=== PATIENT | male | born 1985 | race Caucasian/White ===

== ENCOUNTER 2018-06-08 22:07 | Emergency (ER) | payer SELFPAY ==
[2018-06-08 22:12] VITALS: BP 161/90; PULSE 93; RESP 18; O2SAT 99; BMI 31.1
--- NOTE | 2018-06-08 22:19 | ED.DENTAL ---
HPI - Dental/Oral General Chief complaint: Dental/Oral Stated complaint: ABCESS TOOTH Time Seen by Provider: 06/08/18 22:19 Source: patient Mode of arrival: ambulatory Limitations: no limitations History of Present Illness HPI Narrative: 32-year-old male with extensive history of dental pain presents with worsening pain on his left lower molars in the absence of facial swelling, fever or obvious drainage. He denies any fever chills but just admits to increasing pain. He has seen dentists for this in the past and there was some discussion of dental extraction but he lost his insurance MD Complaint: tooth pain 1. Onset (ago): week(s) Duration: constant Severity: mild Severity scale (1-10): 5 Relieving factors: nothing Exacerbating factors: chewing, cold, heat and drinking fluids Context: history of dental caries Related Data Home Medications Medication Instructions Recorded Confirmed hydrocodone-acetaminophen [[place]] 1 tab PO PRN #0 05/17/17 ibuprofen Unknown #0 05/17/17 bupropion HCl [Wellbutrin SR] #0 12/30/17 Previous Rx's Medication Instructions Recorded prednisone 20 mg PO Q DAY #10 tab 12/30/17 prednisone 40 mg PO Q DAY #7 tab 12/30/17 Allergies Allergy/AdvReac Type Severity Reaction Status Date / Time No Known Drug Allergies Allergy Verified 06/08/18 22:15 Review of Systems Review of Systems All systems reviewed & are unremarkable except as noted in HPI and below Constitutional Denies chills, Denies fever(s), Denies lethargy and Denies weakness Eyes Denies change in vision, Denies eye discharge, Denies irritation and Denies loss of vision ENT Ears, Nose, Mouth, and Throat: Denies change in voice, Reports dental pain, Denies neck pain and Denies sore throat Cardiovascular Denies chest pain, Denies irregular heart rhythm, Denies lightheadedness, Denies palpitations, Denies dyspnea, Denies dyspnea on exertion and Denies orthopnea Respiratory Denies cough, Denies dyspnea, Denies dyspnea on exertion and Denies wheezing Gastrointestinal Gastrointestinal: Denies abdominal pain, Denies change in bowel habits, Denies diarrhea, Denies nausea and Denies vomiting Genitourinary Denies hematuria, Denies flank pain, Denies urinary incontinence and Denies urinary urgency Musculoskeletal Denies neck pain Integumentary/Breasts Denies pruritus, Denies erythema, Denies rash and Denies wounds Neurologic Denies confusion, Denies loss of vision and Denies weakness Psychiatric Denies anxiety, Denies confusion, Denies depression, Denies homicidal ideation and Denies suicidal ideation Endocrine Denies palpitations Hematologic/Lymphatic Denies easy bruising Allergic/Immunologic Denies wheezing [facility], [facility] Social History Smoking Status: Current every day smoker Exam Narrative Exam Narrative: GEN: AOx3 and in mild distress EYES: Pupils are equal, round, and reactive to light and accommodation. Extraoccular muscles are intact bilaterally. There is no subconjunctival hemorrhage or exudate. FACE: no swelling ORAL: widespread poor dentition with multiple caries, but no obvious abscess or swelling CHEST: Lungs are clear to auscultation bilaterally and free of wheezes, rales, or rhonchi. Heart rate is regular rhythm, there are no murmurs, clicks, rubs, or gallops. There is no chest wall tenderness. ABD: Abdomen is soft and nontender. There is no guarding or rebound. Bowel sounds are normal in all 4 quadrants. There is no mass or organomegaly. EXT: Full painless ROM of all extremities with no loss of sensation or strength. SKIN: Warm, pink, and dry. No erythema or rash Initial Vital Signs Initial Vital Signs: Vital Signs Pulse Rate 93 H 06/08/18 22:12 Respiratory Rate 18 06/08/18 22:12 Blood Pressure 161/90 H 06/08/18 22:12 Pulse Oximetry 99 06/08/18 22:12 Course Reevaluation(s) Reevaluation #1: Offered dental block but patient refused electing instead to take Tylenol and Motrin at home Vital Signs - 8 hr 06/08/18 22:12 06/08/18 22:40 Temperature 98.7 F Pulse Rate 93 H Respiratory Rate 18 Blood Pressure 161/90 H Pulse Oximetry 99 Discharge Plan Departure Patient Disposition: Home Clinical Impression: Pain, dental Discharge Date/Time: 06/08/18 23:29 Interventions: ED Discharge Assessment Last Done: 06/08/18 23:28 Instructions: DI for Dental Pain Activity Restrictions/Additional Instructions: *You have been diagnosed with [ dental pain due to caries ] *What to do: *Take medications as directed: over the counter motrin/tylenol *Follow up with your dentist as soon as possible, call for an appointment. Let them know you were seen in the Emergency Department and that we ask that you be seen in follow up *Return to ER if you should have any new, worsening or concerning symptoms, such as [ fever or facial swelling] Prescriptions: No Action hydrocodone-acetaminophen [[place]] 5 MG/325 MG tablet 1 tab PO PRNQty: 0 RF: 0 ibuprofen 200 MG tablet Unknown Qty: 0 RF: 0 bupropion HCl [Wellbutrin SR] 100 mg Tablet Extended Release 12 Hr Qty: 0 RF: 0 prednisone 20 MG tablet 20 mg PO Q DAY Qty: 10 RF: 0 prednisone 20 MG tablet 40 mg PO Q DAY Qty: 7 RF: 0
[2018-06-08 22:40] VITALS: TEMP 37.1
--- NOTE | 2018-06-09 02:47 | ED_ITS ---
HPI - Dental/Oral General Chief complaint: Dental/Oral Stated complaint: ABCESS TOOTH Time Seen by Provider: 06/08/18 22:19 Source: patient Mode of arrival: ambulatory Limitations: no limitations History of Present Illness HPI Narrative: 32-year-old male with extensive history of dental pain presents with worsening pain on his left lower molars in the absence of facial swelling, fever or obvious drainage. He denies any fever chills but just admits to increasing pain. He has seen dentists for this in the past and there was some discussion of dental extraction but he lost his insurance MD Complaint: tooth pain 2 1. Onset (ago): week(s) Duration: constant Severity: mild Severity scale (1-10): 5 Relieving factors: nothing Exacerbating factors: chewing, cold, heat and drinking fluids Context: history of dental caries Related Data Home Medications Medication Instructions Recorded Confirmed hydrocodone-acetaminophen [[place]] 1 tab PO PRN #0 05/17/17 ibuprofen Unknown #0 05/17/17 bupropion HCl [Wellbutrin SR] #0 12/30/17 Previous Rx's Medication Instructions Recorded prednisone 20 mg PO Q DAY #10 tab 12/30/17 prednisone 40 mg PO Q DAY #7 tab 12/30/17 Allergies Allergy/AdvReac Type Severity Reaction Status Date / Time No Known Drug Allergies Allergy Verified 06/08/18 22:15 Review of Systems Review of Systems All systems reviewed & are unremarkable except as noted in HPI and below Constitutional Denies chills, Denies fever(s), Denies lethargy and Denies weakness Eyes Denies change in vision, Denies eye discharge, Denies irritation and Denies loss of vision ENT Ears, Nose, Mouth, and Throat: Denies change in voice, Reports dental pain, Denies neck pain and Denies sore throat Cardiovascular Denies chest pain, Denies irregular heart rhythm, Denies lightheadedness, Denies palpitations, Denies dyspnea, Denies dyspnea on exertion and Denies orthopnea Respiratory Denies cough, Denies dyspnea, Denies dyspnea on exertion and Denies wheezing Gastrointestinal Gastrointestinal: Denies abdominal pain, Denies change in bowel habits, Denies diarrhea, Denies nausea and Denies vomiting Genitourinary Denies hematuria, Denies flank pain, Denies urinary incontinence and Denies urinary urgency Musculoskeletal Denies neck pain Integumentary/Breasts Denies pruritus, Denies erythema, Denies rash and Denies wounds Neurologic Denies confusion, Denies loss of vision and Denies weakness Psychiatric Denies anxiety, Denies confusion, Denies depression, Denies homicidal ideation and Denies suicidal ideation Endocrine Denies palpitations Hematologic/Lymphatic Denies easy bruising Allergic/Immunologic Denies wheezing [facility] Social History Smoking Status: Current every day smoker Exam Narrative Exam Narrative: GEN: AOx3 and in mild distress EYES: Pupils are equal, round, and reactive to light and accommodation. Extraoccular muscles are intact bilaterally. There is no subconjunctival hemorrhage or exudate. FACE: no swelling ORAL: widespread poor dentition with multiple caries, but no obvious abscess or swelling CHEST: Lungs are clear to auscultation bilaterally and free of wheezes, rales, or rhonchi. Heart rate is regular rhythm, there are no murmurs, clicks, rubs, or gallops. There is no chest wall tenderness. ABD: Abdomen is soft and nontender. There is no guarding or rebound. Bowel sounds are normal in all 4 quadrants. There is no mass or organomegaly. EXT: Full painless ROM of all extremities with no loss of sensation or strength. SKIN: Warm, pink, and dry. No erythema or rash Initial Vital Signs Initial Vital Signs: Vital Signs Pulse Rate 93 H 06/08/18 22:12 Respiratory Rate 18 06/08/18 22:12 Blood Pressure 161/90 H 06/08/18 22:12 Pulse Oximetry 99 06/08/18 22:12 Course Reevaluation(s) Reevaluation #1: Offered dental block but patient refused electing instead to take Tylenol and Motrin at home Vital Signs - 8 hr 06/08/18 22:12 06/08/18 22:40 Temperature 98.7 F Pulse Rate 93 H Respiratory Rate 18 Blood Pressure 161/90 H Pulse Oximetry 99 Discharge Plan Departure Patient Disposition: Home Clinical Impression: Pain, dental Discharge Date/Time: 06/08/18 23:29 Interventions: ED Discharge Assessment Last Done: 06/08/18 23:28 Instructions: DI for Dental Pain Activity Restrictions/Additional Instructions: *You have been diagnosed with [ dental pain due to caries ] *What to do: *Take medications as directed: over the counter motrin/tylenol *Follow up with your dentist as soon as possible, call for an appointment. Let them know you were seen in the Emergency Department and that we ask that you be seen in follow up *Return to ER if you should have any new, worsening or concerning symptoms , such as [ fever or facial swelling] Prescriptions: No Action hydrocodone-acetaminophen [[place]] 5 MG/325 MG tablet 1 tab PO PRNQty: 0 RF: 0 ibuprofen 200 MG tablet Unknown Qty: 0 RF: 0 bupropion HCl [Wellbutrin SR] 100 mg Tablet Extended Release 12 Hr Qty: 0 RF: 0 prednisone 20 MG tablet 20 mg PO Q DAY Qty: 10 RF: 0 prednisone 20 MG tablet 40 mg PO Q DAY Qty: 7 RF: 0
== END 2018-06-08 23:29 | disposition home or self-care (01) ==
PROVIDERS: Emergency Provider Emergency Medicine; Family Provider Family Medicine; PCP Family Medicine
DX: K08.89 Other specified disorders of teeth and supporting structures (principal)
CPT/HCPCS: 99282

== ENCOUNTER 2018-08-24 11:23 | Emergency (ER) | payer OTHER, SELFPAY ==
[2018-08-24 11:29] VITALS: BP 136/76; PULSE 75; RESP 19; TEMP 36.9; O2SAT 100; BMI 31.8
--- NOTE | 2018-08-24 11:37 | ED.BACK ---
HPI - Back Pain/Injury General Chief Complaint: Back Pain/Injury Stated Complaint: lower back pain Time Seen by Provider: 08/24/18 11:33 Source: patient and family Mode of arrival: ambulatory Limitations: no limitations History of Present Illness HPI Narrative: 32-year-old nonsmoking male presents with his in the chief complaint of right lumbar pain with radiation down his right leg for the past 2 days. He was lifting a heavy object when he felt the pain suddenly occur. He does have a history of low back pain but never like this. He denies any direct trauma. He has had no fever, chills or midline pain. He denies any dysuria, frequency or urgency. He denies any trouble with the control of his bowel or bladder. He denies any weakness of his lower extremities. MD Complaint: back pain Onset (ago): day(s) Duration: constant Similar Symptoms Previously: No Location: lumbar spine and right lower back Severity: severe Quality: burning and sharp Radiation: right leg Relieving factors: immobilization Exacerbating factors: walking Context: while lifting and turning/twisting Associated symptoms: difficulty walking Related Data Home Medications Medication Instructions Recorded Confirmed bupropion HCl [Wellbutrin SR] #0 12/30/17 Previous Rx's Medication Instructions Recorded ketorolac 10 mg PO Q6H PRN #14 tab 08/24/18 prednisone See Label Instructions .ROUTE 08/24/18 .COMPLEX #30 tab Allergies Allergy/AdvReac Type Severity Reaction Status Date / Time No Known Drug Allergies Allergy Verified 08/24/18 11:36 Review of Systems Review of Systems All systems reviewed & are unremarkable except as noted in HPI and below Constitutional Denies chills, Denies fever(s), Denies lethargy and Denies weakness Eyes Denies change in vision, Denies eye discharge, Denies irritation and Denies loss of vision ENT Ears, Nose, Mouth, and Throat: Denies change in voice, Denies neck pain and Denies sore throat Cardiovascular Denies chest pain, Denies irregular heart rhythm, Denies lightheadedness, Denies palpitations, Denies dyspnea, Denies dyspnea on exertion and Denies orthopnea Respiratory Denies cough, Denies dyspnea, Denies dyspnea on exertion and Denies wheezing Gastrointestinal Gastrointestinal: Denies abdominal pain, Denies change in bowel habits, Denies diarrhea, Denies nausea and Denies vomiting Genitourinary Denies hematuria, Denies flank pain, Denies urinary incontinence and Denies urinary urgency Musculoskeletal Reports abnormal gait, Reports back pain and Denies neck pain Integumentary/Breasts Denies pruritus, Denies erythema, Denies rash and Denies wounds Neurologic Reports abnormal gait, Denies confusion, Denies loss of vision and Denies weakness Psychiatric Denies anxiety, Denies confusion, Denies depression, Denies homicidal ideation and Denies suicidal ideation Endocrine Denies palpitations Hematologic/Lymphatic Denies easy bruising Allergic/Immunologic Denies wheezing [facility] Social History Smoking Status: Current every day smoker Exam Narrative Exam Narrative: GEN: AOx3 and in mild distress EYES: Pupils are equal, round, and reactive to light and accommodation. Extraoccular muscles are intact bilaterally. There is no subconjunctival hemorrhage or exudate. CHEST: Lungs are clear to auscultation bilaterally and free of wheezes, rales, or rhonchi. Heart rate is regular rhythm, there are no murmurs, clicks, rubs, or gallops. There is no chest wall tenderness. ABD: Abdomen is soft and nontender. There is no guarding or rebound. Bowel sounds are normal in all 4 quadrants. There is no mass or organomegaly. EXT: Full painless ROM of all extremities with no loss of sensation or strength. SKIN: Warm, pink, and dry. No erythema or rash BACK: long winder tender but free of any obvious external abnormalities. Patient exam notes decreased range of motion and muscle spasm, but no CVA tenderness, or vertebral point tenderness. There are no symptoms of cauda equina such as saddle anesthesia, and decreased reflexes, decreased sensation or strength. Initial Vital Signs Initial Vital Signs: Vital Signs Temperature 98.4 F 08/24/18 11:29 Pulse Rate 75 08/24/18 11:29 Respiratory Rate 19 08/24/18 11:29 Blood Pressure 136/76 08/24/18 11:29 Pulse Oximetry 100 08/24/18 11:29 Course Orders Ordered: Discontinued Medications Ketorolac Tromethamine (Toradol) 60 mg IM NOW ONE Stop: 08/24/18 11:45 Last Admin: 08/24/18 11:50 Dose: 60 mg Prednisone (Deltasone) 40 mg PO NOW ONE Stop: 08/24/18 11:45 Last Admin: 08/24/18 11:50 Dose: 40 mg Vital Signs - 8 hr 08/24/18 11:29 Temperature 98.4 F Pulse Rate 75 Respiratory Rate 19 Blood Pressure 136/76 Pulse Oximetry 100 MDM - Back Pain/Injury MDM Narrative Medical decision making narrative: more ominous diagnoses such as cauda equina or epidural abscess considered but thought less likely given history and physical. Discharge Plan Departure Patient Disposition: Home Clinical Impression: Back pain of lumbosacral region with sciatica Discharge Date/Time: 08/24/18 12:15 Interventions: ED Discharge Assessment Last Done: 08/24/18 12:14 Instructions: DI for Back Pain With Sciatica Activity Restrictions/Additional Instructions: *You have been diagnosed with [ acute back pain with sciatica ] *What to do: *Take medications as directed *Follow up with your primary care provider in 2-3 days, call for an appointment. Let them know you were seen in the Emergency Department and that we ask that you be seen in follow up *Return to ER if you should have any new, worsening or concerning symptoms Prescriptions: New ketorolac 10 mg tablet 10 mg PO Q6H PRN (Reason: pain) Qty: 14 RF: 0 prednisone 10 mg tablet See Label Instructions .ROUTE .COMPLEX Qty: 30 RF: 0 No Action bupropion HCl [Wellbutrin SR] 100 mg Tablet Sustained-Release 12 Hr Qty: 0 RF: 0 Referrals: Sean Restrepo MD [Primary Care Provider] - Stand Alone Forms: Work/School Restrictions
[2018-08-24] MEDS: KETOROLAC 60 MG/2 ML VIAL IM (11:50)
[2018-08-24] MEDS: predniSONE 20 MG TABLET 40 MG PO (11:50)
[2018-08-24 12:08] VITALS: BP 124/64; PULSE 69; RESP 16; O2SAT 100
== END 2018-08-24 12:15 | disposition home or self-care (01) ==
PROVIDERS: Emergency Provider Emergency Medicine; Family Provider Family Medicine; PCP Family Medicine
DX: M54.40 Lumbago with sciatica, unspecified side (principal)
CPT/HCPCS: 96372; 99282; 99283; J1885

== ENCOUNTER 2019-03-04 12:30 | Emergency (ER) | payer OTHER, SELFPAY ==
[2019-03-04 12:47] VITALS: BP 136/80; PULSE 80; RESP 18; TEMP 37.1; O2SAT 100; BMI 30.5
--- NOTE | 2019-03-04 13:12 | PC.NURSE ---
pt reports he was holding a piece of wood when someone jumped on the end of it causing the unsecure load to pull his arm towards the ground. describes incident as sudden forceful over extension of arm, now having inner elbow pain.
--- NOTE | 2019-03-04 13:22 | ED.UPPEXIN ---
HPI - Extremity Injury (Upper) <Pamela Tim PA-C - Last Filed: 03/04/19 18:57> General Chief Complaint: Extremity Injury, Upper Stated Complaint: left arm injury from accident at work Time Seen by Provider: 03/04/19 13:07 Source: patient Mode of arrival: ambulatory Limitations: no limitations History of Present Illness HPI narrative: This 33-year-old male comes to ED secondary to work-related injury to left upper extremity that happened earlier today. He states that he was holding a board in his left hand and arm with the hand facing upwards (part of a floating dock, weight approximately 80 lb), when his co-worker jumped on top of the board hitting multiple warts that were lined up together. The boards jerked upwards dragging his arm downward. He tried to hold onto it so his co-worker did not fall down when states the weight of the impact was large, 0s of lb or more. He states that right away he felt like there was a jam sensation in his elbow, pain shooting from his elbow up the arm into the shoulder. He states he also had tingling in all of his fingers right afterward, but not in the upper extremity at all. That has gotten better. He states that he continues to have pain in the elbow area radiating to the shoulder, worse with movement, better held in a neutral position. He states that his wrist, hand, and forearm seem okay, not having difficulty moving them. He does not feel like his arm is weak, just painful to move. He denies any neck pain or other injury. He did not fall. He has not had problems with this shoulder in the past. He does have history of bilateral carpal tunnel syndrome, not problematic recently Related Data Home Medications Medication Instructions Recorded Confirmed bupropion HCl 150 mg PO Q12H 03/04/19 03/04/19 Previous Rx's Medication Instructions Recorded cyclobenzaprine 20 mg PO Q8H PRN #14 tab 03/04/19 hydrocodone-acetaminophen 1 tab PO Q6H PRN #7 tab 03/04/19 meloxicam 15 mg PO DAILY #14 tab 03/04/19 Allergies Allergy/AdvReac Type Severity Reaction Status Date / Time No Known Drug Allergies Allergy Verified 08/24/18 11:36 Review of Systems <Pamela Tim PA-C - Last Filed: 03/04/19 18:57> Review of Systems ROS Unobtainable: All systems reviewed & are unremarkable except as noted in HPI and below PFSH <Pamela Tim PA-C - Last Filed: 03/04/19 18:57> Medical History (Updated 03/04/19 @ 15:35 by Pamela Tim PA-C) History of sciatica (Chronic) History of asthma (Chronic) Carpal tunnel syndrome on both sides (Resolved) Surgical History (Updated 03/04/19 @ 13:26 by Pamela Tim PA-C) No history of previous surgery (Suspected) Social History Smoking Status: Current every day smoker Social History Smoking Status: Current every day smoker Exam <Pamela Tim PA-C - Last Filed: 03/04/19 18:57> Narrative Exam Narrative: GENERAL APPEARANCE: Patient sitting comfortably, in no distress, holding left forearm in right hand. LUNGS: Clear to auscultation bilaterally. HEART: Rate and rhythm regular without murmur, normal S1 and S2, no S3 or S4. MUSCULOSKELETAL: Left shoulder no point tenderness over the bony prominences, mild tenderness throughout the upper extremity, over the biceps more than triceps. Moderate tenderness over the anterior medial forearm musculature, more on the anterior than posterior surface. No tenderness over the bony prominences of the elbow. No tenderness over the left forearm, wrist, or hand where he has full range of motion. 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 He is able to abduct the shoulder to 90? with tenderness, difficulty maintaining resisted abduction secondary to tenderness, also difficulty maintaining resisted abduction secondary to tenderness. He is able to externally rotate the left shoulder, limited internal rotation secondary to tenderness. He is able to flex and extend the left elbow with mild tenderness, able to pronate and supinate with UE at side. Full range of motion of the cervical spine without tenderness NEUROVASCULAR: The left upper extremity is warm and pink, with intact radial and ulnar pulses, sensation grossly intact Initial Vital Signs Initial Vital Signs: Vital Signs Temperature 98.7 F 03/04/19 12:47 Pulse Rate 80 03/04/19 12:47 Respiratory Rate 18 03/04/19 12:47 Blood Pressure 136/80 03/04/19 12:47 Pulse Oximetry 100 03/04/19 12:47 <Rhea Gonzales DO - Last Filed: 03/06/19 08:44> Initial Vital Signs Initial Vital Signs: Vital Signs Temperature 98.7 F 03/04/19 12:47 Pulse Rate 80 03/04/19 12:47 Respiratory Rate 18 03/04/19 12:47 Blood Pressure 136/80 03/04/19 12:47 Pulse Oximetry 100 03/04/19 12:47 Course <Pamela Tim PA-C - Last Filed: 03/04/19 18:57> Orders Ordered: Discontinued Medications Ibuprofen (Advil) 800 mg PO NOW ONE Stop: 03/04/19 13:39 Last Admin: 03/04/19 13:42 Dose: 800 mg Vital Signs - 8 hr 03/04/19 12:47 Temperature 98.7 F Pulse Rate 80 Respiratory Rate 18 Blood Pressure 136/80 Pulse Oximetry 100 <Rhea Gonzales DO - Last Filed: 03/06/19 08:44> Orders Ordered: Discontinued Medications Ibuprofen (Advil) 800 mg PO NOW ONE Stop: 03/04/19 13:39 Last Admin: 03/04/19 13:42 Dose: 800 mg Vital Signs - 8 hr 03/04/19 12:47 Temperature 98.7 F Pulse Rate 80 Respiratory Rate 18 Blood Pressure 136/80 Pulse Oximetry 100 Discharge Plan Departure Patient Disposition: Home Clinical Impression: Disorder of ligament of shoulder Qualifiers: Laterality: left Qualified Code(s): M24.212 - Disorder of ligament, left shoulder Rotator cuff syndrome Qualifiers: Laterality: left Qualified Code(s): M75.102 - Unspecified rotator cuff tear or rupture of left shoulder, not specified as traumatic Upper extremity tendon strain Qualifiers: Encounter type: initial encounter Laterality: left Qualified Code(s): S46.912A - Strain of unspecified muscle, fascia and tendon at shoulder and upper arm level, left arm, initial encounter Discharge Date/Time: 03/04/19 15:55 Interventions: ED Discharge Assessment Last Done: 03/04/19 15:54 Instructions: Shoulder Tendinopathy, Rotator Cuff Injury Activity Restrictions/Additional Instructions: Please return as we talked about if you have any acutely worsening symptoms. Otherwise, wear the sling as needed for comfort but due the gentle exercises such as pendulum that we talked about several times daily to help with your mobility. Please take the once daily anti-inflammatory/pain reliever meloxicam which you can start this evening. Have also refilled your prescription for cyclobenzaprine (Flexeril), and given you a little bit of Lortab if you need to take that especially in the evening. Please do not take the muscle relaxant or Lortab while you are working or driving as these can make you sleepy. Please follow-up with your PCP in the next few days to assess your progress and determine whether further diagnostic studies and referral are needed versus something like physical therapy. As we talked about, you also need to have some type of follow-up imaging done on your left upper arm and shoulder. There was no acute injury today. You do have some abnormal density in the bones, which is likely chronic but we do not have any old studies for you. Please review this with your PCP. Prescriptions: New cyclobenzaprine 10 mg tablet 20 mg PO Q8H PRN (Reason: muscle spasm) Qty: 14 RF: 0 hydrocodone-acetaminophen 5-325 mg tablet 1 tab PO Q6H PRN (Reason: acute shoulder pain/injury) Qty: 7 RF: 0 meloxicam 15 mg tablet 15 mg PO DAILY Qty: 14 RF: 0 No Action bupropion HCl 150 mg tablet sustained-release 12 hr 150 mg PO Q12H RF: 0 Referrals: Sean Restrepo MD [Primary Care Provider] - Stand Alone Forms: Work Release Note <Rhea Gonzales DO - Last Filed: 03/06/19 08:44> [facility] Attestation: I was immediately available in the department for consultation. Documentation has been reviewed. I agree with assessment and plan.
--- NOTE | 2019-03-04 13:27 | ED_ITS ---
HPI - Extremity Injury (Upper) <Pamela Tim PA-C - Last Filed: 03/04/19 18:57> General Chief Complaint: Extremity Injury, Upper Stated Complaint: left arm injury from accident at work Time Seen by Provider: 03/04/19 13:07 Source: patient Mode of arrival: ambulatory Limitations: no limitations History of Present Illness HPI narrative: This 33-year-old male comes to ED secondary to work-related injury to left upper extremity that happened earlier today. He states that he was holding a board in his left hand and arm with the hand facing upwards (part of a floating dock, weight approximately 80 lb), when his co-worker jumped on top of the board hitting multiple warts that were lined up together. The boards jerked upwards dragging his arm downward. He tried to hold onto it so his co- worker did not fall down when states the weight of the impact was large, 0s of lb or more. He states that right away he felt like there was a jam sensation in his elbow, pain shooting from his elbow up the arm into the shoulder. He states he also had tingling in all of his fingers right afterward, but not in the upper extremity at all. That has gotten better. He states that he continues to have pain in the elbow area radiating to the shoulder, worse with movement, better held in a neutral position. He states that his wrist, hand, and forearm seem okay, not having difficulty moving them. He does not feel like his arm is weak, just painful to move. He denies any neck pain or other injury. He did not fall. He has not had problems with this shoulder in the past. He does have his tory of bilateral carpal tunnel syndrome, not problematic recently Related Data Home Medications Medication Instructions Recorded Confirmed bupropion HCl 150 mg PO Q12H 03/04/19 03/04/19 Previous Rx's Medication Instructions Recorded cyclobenzaprine 20 mg PO Q8H PRN #14 tab 03/04/19 hydrocodone-acetaminophen 1 tab PO Q6H PRN #7 tab 03/04/19 meloxicam 15 mg PO DAILY #14 tab 03/04/19 Allergies Allergy/AdvReac Type Severity Reaction Status Date / Time No Known Drug Allergies Allergy Verified 08/24/18 11:36 Review of Systems <Pamela Tim PA-C - Last Filed: 03/04/19 18:57> Review of Systems ROS Unobtainable: All systems reviewed & are unremarkable except as noted in HPI and below PFSH <Paemla Tim PA-C - Last Filed: 03/04/19 18:57> Medical History (Updated 03/04/19 @ 15:35 by Pamela Tim PA-C) History of sciatica (Chronic) History of asthma (Chronic) Carpal tunnel syndrome on both sides (Resolved) Surgical History (Updated 03/04/19 @ 13:26 by Pameal Tim PA-C) No history of previous surgery (Suspected) Social History Smoking Status: Current every day smoker Social History Smoking Status: Current every day smoker Exam <Pamela Tim PA-C - Last Filed: 03/04/19 18:57> Narrative Exam Narrative: GENERAL APPEARANCE: Patient sitting comfortably, in no distress, holding left forearm in right hand. LUNGS: Clear to auscultation bilaterally. HEART: Rate and rhythm regular without murmur, normal S1 and S2, no S3 or S4. MUSCULOSKELETAL: Left shoulder no point tenderness over the bony prominences, mild tenderness throughout the upper extremity, over the biceps more than triceps. Moderate tenderness over the anterior medial forearm musculature, more on the anterior than posterior surface. No tenderness over the bony prominences of the elbow. No tenderness over the left forearm, wrist, or hand where he has full range of motion. 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 He is able to abduct the shoulder to 90? with tenderness, difficulty maintaining resisted abduction secondary to tenderness, also difficulty maintaining resisted abduction secondary to tenderness. He is able to externally rotate the left shoulder, limited internal rotation secondary to tenderness. He is able to flex and extend the left elbow with mild tenderness, able to pronate and supinate with UE at side. Full range of motion of the cervical spine without tenderness NEUROVASCULAR: The left upper extremity is warm and pink, with intact radial and ulnar pulses, sensation grossly intact Initial Vital Signs Initial Vital Signs: Vital Signs Temperature 98.7 F 03/04/19 12:47 Pulse Rate 80 03/04/19 12:47 Respiratory Rate 18 03/04/19 12:47 Blood Pressure 136/80 03/04/19 12:47 Pulse Oximetry 100 03/04/19 12:47 <Rhea Gonzales DO - Last Filed: 03/06/19 08:44> Initial Vital Signs Initial Vital Signs: Vital Signs Temperature 98.7 F 03/04/19 12:47 Pulse Rate 80 03/04/19 12:47 Respiratory Rate 18 03/04/19 12:47 Blood Pressure 136/80 03/04/19 12:47 Pulse Oximetry 100 03/04/19 12:47 Course <Pamela iTm PA-C - Last Filed: 03/04/19 18:57> Orders Ordered: Discontinued Medications Ibuprofen (Advil) 800 mg PO NOW ONE Stop: 03/04/19 13:39 Last Admin: 03/04/19 13:42 Dose: 800 mg Vital Signs - 8 hr 03/04/19 12:47 Temperature 98.7 F Pulse Rate 80 Respiratory Rate 18 Blood Pressure 136/80 Pulse Oximetry 100 <Rhea Gonzales DO - Last Filed: 03/06/19 08:44> Orders Ordered: Discontinued Medications Ibuprofen (Advil) 800 mg PO NOW ONE Stop: 03/04/19 13:39 Last Admin: 03/04/19 13:42 Dose: 800 mg Vital Signs - 8 hr 03/04/19 12:47 Temperature 98.7 F Pulse Rate 80 Respiratory Rate 18 Blood Pressure 136/80 Pulse Oximetry 100 Discharge Plan Departure Patient Disposition: Home Clinical Impression: Disorder of ligament of shoulder Qualifiers: Laterality: left Qualified Code(s): M24.212 - Disorder of ligament, left shoulder Rotator cuff syndrome Qualifiers: Laterality: left Qualified Code(s): M75.102 - Unspecified rotator cuff tear or rupture of left shoulder, not specified as traumatic Upper extremity tendon strain Qualifiers: Encounter type: initial encounter Laterality: left Qualified Code(s): S46.912A - Strain of unspecified muscle, fascia and tendon at shoulder and upper arm level, left arm, initial encounter Discharge Date/Time: 03/04/19 15:55 Interventions: ED Discharge Assessment Last Done: 03/04/19 15:54 Instructions: Shoulder Tendinopathy, Rotator Cuff Injury Activity Restrictions/Additional Instructions: Please return as we talked about if you have any acutely worsening symptoms. Otherwise, wear the sling as needed for comfort but due the gentle exercises such as pendulum that we talked about several times daily to help with your mobility. Please take the once daily anti-inflammatory/pain reliever meloxicam which you can start this evening. Have also refilled your prescription for cyclobenzaprine (Flexeril), and given you a little bit of Lortab if you need to take that especially in the evening. Please do not take the muscle relaxant or Lortab while you are working or driving as these can make you sleepy. Please follow-up with your PCP in the next few days to assess your progress and determine whether further diagnostic studies and referral are needed versus some thing like physical therapy. As we talked about, you also need to have some type of follow-up imaging done on your left upper arm and shoulder. There was no acute injury today. You do have some abnormal density in the bones, which is likely chronic but we do not have any old studies for you. Please review this with your PCP. Prescriptions: New cyclobenzaprine 10 mg tablet 20 mg PO Q8H PRN (Reason: muscle spasm) Qty: 14 RF: 0 hydrocodone-acetaminophen 5-325 mg tablet 1 tab PO Q6H PRN (Reason: acute shoulder pain/injury) Qty: 7 RF: 0 meloxicam 15 mg tablet 15 mg PO DAILY Qty: 14 RF: 0 No Action bupropion HCl 150 mg tablet sustained-release 12 hr 150 mg PO Q12H RF: 0 Referrals: Sean Restrepo MD [Primary Care Provider] - Stand Alone Forms: Work Release Note <Rhea Gonzales DO - Last Filed: 03/06/19 08:44> [facility] Attestation: I was immediately available in the department for consultation. Documentation has been reviewed. I agree with assessment and plan.
--- NOTE | 2019-03-04 13:38 | DI.RAD.S_ITS ---
PROCEDURE: XR SHOULDER LT MIN 2V INDICATIONS: pain injury (shoulder pulled down heavy weight) TECHNIQUE: 3 views of the shoulder were acquired. COMPARISON: None. FINDINGS: Bones: No fractures or dislocations. There are 2 areas of suspicious bony lesions, one located at the inferior glenohumeral joint margin where what could be an intra-articular loose body is present measuring up to 8 mm in diameter. A second area of sclerosis that clearly is within the medullary space is partially visualized within the proximal humeral diaphysis measuring up to 4.2 cm craniocaudad and 1.7 cm transverse.. Visualized ribs appear intact. Soft tissues: No suspicious soft tissue calcifications. IMPRESSION: No trauma found. Possible intra-articular loose body versus sharply demarcated bone island at the base of the glenoid, measuring 8 mm. 1.7 x 4.2 cm area of medullary space smoothly marginated sclerosis, uncertain etiology and not visualized on any prior available imaging. Obtaining a shoulder plain films to include the humerus to establish baseline visualization for followup appears warranted. Dictated by: Eriberto Whitt M.D. on 03/04/2019 at 14:50 Approved by: Eriberto Whitt M.D. on 03/04/2019 at 14:52
--- NOTE | 2019-03-04 13:38 | DI.RAD.S_ITS ---
PROCEDURE: XR ELBOW LT MIN 3V INDICATIONS: pain after injury (pulled downwards, heavy weight) TECHNIQUE: 3 views of the elbow were acquired. COMPARISON: None. FINDINGS: Bones: No fractures or dislocations. No suspicious bony lesions. Soft tissues: No elbow joint effusion. No suspicious soft tissue calcifications. IMPRESSION: No trauma. Dictated by: Eriberto Whitt M.D. on 03/04/2019 at 14:52 Approved by: Eriberto Whitt M.D. on 03/04/2019 at 14:53
[2019-03-04] MEDS: IBUPROFEN 400 MG TABLET 800 MG PO (13:42)
== END 2019-03-04 15:55 | disposition home or self-care (01) ==
PROVIDERS: Emergency Provider Internal Medicine; Family Provider Family Medicine; PCP Family Medicine
DX: M24.212 Disorder of ligament, left shoulder (principal); M75.102 Unspecified rotator cuff tear or rupture of left shoulder, not specified as traumatic; S46.912A Strain of unspecified muscle, fascia and tendon at shoulder and upper arm level, left arm, initial encounter; Y99.0 Civilian activity done for income or pay
CPT/HCPCS: 73030; 73080; 99282; 99283

== ENCOUNTER 2020-08-15 20:25 | Emergency (ER) | payer SELFPAY ==
[2020-08-15 20:38] VITALS: BP 156/67; PULSE 97; RESP 18; TEMP 36.6; O2SAT 98; BMI 37.3
--- NOTE | 2020-08-15 22:33 | ED_ITS ---
HPI - Neck Pain/Injury General Chief Complaint: Neck Pain/Injury Stated Complaint: NECK PAIN Time Seen by Provider: 08/15/20 22:32 Source: patient Mode of arrival: Ambulatory Limitations: no limitations History of Present Illness HPI Narrative: The patient of sudden onset of right-sided neck pain about 4:00 p.m. today. He has had no recent trauma. He has no chronic neck problems. He did take a dose of cyclobenzaprine, he has been previously treated for low back spasm. Medication has not helped. He has no significant headache. He initially had pain shooting up the right arm. His no numbness or weakness in either arm. He has no other back pain. He denies recent illness. Related Data Home Medications Medication Instructions Recorded Confirmed bupropion HCl 150 mg PO Q12H 03/04/19 03/04/19 Previous Rx's Medication Instructions Recorded cyclobenzaprine 20 mg PO Q8H PRN #14 tab 03/04/19 hydrocodone-acetaminophen 1 tab PO Q6H PRN #7 tab 03/04/19 meloxicam 15 mg PO DAILY #14 tab 03/04/19 diazepam [Valium] 5 mg PO TID PRN #6 tab 08/15/20 Allergies Allergy/AdvReac Type Severity Reaction Status Date / Time No Known Drug Allergies Allergy Verified 08/24/18 11:36 Review of Systems Constitutional Constitutional: Denies headache(s) and Denies malaise Eyes Eyes: Denies change in vision ENT Ears, Nose, Mouth, and Throat: Denies vertigo, Denies dizziness, Denies headache(s) and Reports neck pain Musculoskeletal Musculoskeletal: Denies back pain, Reports limited range of motion and Reports neck pain Integumentary/Breasts Skin/Breast: Denies rash Neurologic Neurologic: Denies vertigo, Denies dizziness and Denies headache(s) Patient History Medical History Carpal tunnel syndrome on both sides (Resolved) History of asthma (Chronic) History of sciatica (Chronic) Surgical History No history of previous surgery (Suspected) Social History Smoking Status: Current every day smoker Smoking Status: Current every day smoker alcohol intake frequency: 0-2 drinks per day Substance Use Type: does not use Exam Initial Vital Signs Initial Vital Signs: Vital Signs Temperature 97.9 F 08/15/20 20:38 Pulse Rate 97 H 08/15/20 20:38 Respiratory Rate 18 08/15/20 20:38 Blood Pressure 156/67 H 08/15/20 20:38 Pulse Oximetry 98 08/15/20 20:38 Const General: cooperative and well developed Nutritional Appearance: well nourished [facility] Head: normocephalic and atraumatic Mouth: oral mucosae normal Eyes General: appearance normal, both eyes and all related structures Eyelids: eyelids normal Conjunctivae: conjunctivae normal Sclera: sclerae normal Pupils: PERRL EOM: EOM intact bilaterally Neck Neck: normal visual inspection and trachea midline Other: Right lower paraspinal tenderness along the C-spine. Pain radiates laterally toward the right shoulder. Back/Spine/Pelvis Other: No tenderness or spasm in thoracic or lumbar spine. Neuro Other: Motor and sensory exam of the extremities are intact Course Course Course Narrative: The patent was treated with Toradol 60 mg IM as well as Valium 5 mg p.o. he has improved prior to discharge. Orders Ordered: Discontinued Medications Diazepam (Valium) 5 mg PO NOW ONE Stop: 08/15/20 22:46 Last Admin: 08/15/20 22:52 Dose: 5 mg Documented by: JULIO C Ketorolac Tromethamine (Toradol) 60 mg IM NOW ONE Stop: 08/15/20 22:46 Last Admin: 08/15/20 22:53 Dose: 60 mg Documented by: JULIO C Vital Signs Vital signs: Vital Signs - 8 hr 08/15/20 23:47 Pulse Rate 75 Respiratory Rate 18 Blood Pressure 144/75 H Pulse Oximetry 95 Discharge Plan Departure Patient Disposition: Home Clinical Impression: Cervical paraspinal muscle spasm Discharge Date/Time: 08/15/20 23:47 Instructions: Chronic Neck Pain Activity Restrictions/Additional Instructions: Advil 3 tablets every 6 hours as needed for pain. Valium 5 mg every 8 hours for the next 1-2 days. Apply ice packs to her right neck frequently for the next 2 days, on day 3 converted to frequent heat packs to the neck. Follow-up with your doctor in 3 days if not improved. Return here as necessary. Prescriptions: New diazepam [Valium] 5 mg tablet 5 mg PO TID PRN (Reason: muscle spasm) Qty: 6 RF: 0 No Action bupropion HCl 150 mg tablet sustained-release 12 hr 150 mg PO Q12H RF: 0 cyclobenzaprine 10 mg tablet 20 mg PO Q8H PRN (Reason: muscle spasm) Qty: 14 RF: 0 hydrocodone-acetaminophen 5-325 mg tablet 1 tab PO Q6H PRN (Reason: acute shoulder pain/injury) Qty: 7 RF: 0 meloxicam 15 mg tablet 15 mg PO DAILY Qty: 14 RF: 0 Referrals: Sean Restrepo MD [Primary Care Provider] - Stand Alone Forms: Work Release Note
[2020-08-15] MEDS: diazePAM 5 MG TABLET PO (22:52)
[2020-08-15] MEDS: KETOROLAC 60 MG/2 ML VIAL IM (22:53)
[2020-08-15 23:47] VITALS: BP 144/75; PULSE 75; RESP 18; O2SAT 95
== END 2020-08-15 23:47 | disposition home or self-care (01) ==
PROVIDERS: Emergency Provider Emergency Medicine; Family Provider Family Medicine; PCP Family Medicine
DX: M62.838 Other muscle spasm (principal)
CPT/HCPCS: 96372; 99283; J1885

== ENCOUNTER 2021-07-12 22:54 | Emergency (ER) | payer OTHER, SELFPAY ==
[2021-07-12 23:04] VITALS: BP 151/78; PULSE 91; RESP 22; TEMP 36.8; O2SAT 98; BMI 42.0
--- NOTE | 2021-07-12 23:05 | ED.GENADULT ---
HPI - General Adult General Chief complaint: Abdominal Pain Stated complaint: felt something pop in lower abd, nausea, faint Time Seen by Provider: 07/12/21 22:56 Source: patient Mode of arrival: Ambulatory History of Present Illness HPI narrative: Patient is a 35-year-old male who just prior to arrival was at home. He was lifting up a 14 ft aluminum boat in order to dump the water out of it. He states that in the process he had a sudden discomfort in his right lower abdomen. [place] a popping sensation. Immediately had nausea and diaphoresis and felt faint. Still having discomfort in this area. No testicular pain. Has not tried anything for symptoms prior to arrival. Related Data Home Medications Medication Instructions Recorded Confirmed bupropion HCl 150 mg tablet,12 hr 150 mg PO Q12H 03/04/19 03/04/19 sustained-release Previous Rx's Medication Instructions Recorded cyclobenzaprine 10 mg tablet 20 mg PO Q8H PRN #14 tab 03/04/19 hydrocodone 5 mg-acetaminophen 325 1 tab PO Q6H PRN #7 tab 03/04/19 mg tablet meloxicam 15 mg tablet 15 mg PO DAILY #14 tab 03/04/19 diazepam 5 mg tablet (Valium) 5 mg PO TID PRN #6 tab 08/15/20 Allergies Allergy/AdvReac Type Severity Reaction Status Date / Time No Known Drug Allergies Allergy Verified 08/24/18 11:36 Review of Systems Constitutional Constitutional: Reports as per HPI and Reports system reviewed and no additional complaints, except as documented Gastrointestinal Gastrointestinal: Reports as per HPI and Reports system reviewed and no additional complaints, except as documented Genitourinary Genitourinary: Reports system reviewed and no additional complaints, except as documented, Reports as per HPI and Denies testicular pain Musculoskeletal Musculoskeletal: Denies back pain Integumentary/Breasts Skin/Breast: Reports system reviewed and no additional complaints, except as documented and Reports as per HPI Hematologic/Lymphatic On Anticoagulants: No Patient History Medical History (Updated 07/12/21 @ 23:22 by Sean Green DO) Carpal tunnel syndrome on both sides History of asthma History of sciatica Surgical History No history of previous surgery Social History Smoking Status: Current every day smoker Smoking Status: Current every day smoker alcohol intake frequency: 0-2 drinks per day Substance Use Type: does not use Exam Initial Vital Signs Initial Vital Signs: Vital Signs Temperature 98.3 F 07/12/21 23:04 Pulse Rate 91 H 07/12/21 23:04 Respiratory Rate 22 07/12/21 23:04 Blood Pressure 151/78 H 07/12/21 23:04 Pulse Oximetry 98 07/12/21 23:04 HENMT Head: normal to inspection and normocephalic Resp Effort & Inspection: normal respiratory effort Cardio Rate: regular rate GI Inspection: normal to inspection, non-distended and no visible herniation Palpation: soft, No firm, No guarding, No hernia, No mass and tender (Right lower quadrant) Back/Spine/Pelvis Back: No CVA tenderness Thoracic/Lumbar Spine: No lumbar spinal tenderness Skin General: no rashes or lesions noted Extrem General: normal to inspection Course Orders Ordered: Discontinued Medications Ketorolac Tromethamine (Ketorolac 30 Mg/Ml Vial) 30 mg IM NOW ONE Stop: 07/12/21 23:15 Vital Signs Vital signs: Vital Signs - 8 hr 07/12/21 23:04 Temperature 98.3 F Pulse Rate 91 H Respiratory Rate 22 Blood Pressure 151/78 H Pulse Oximetry 98 Medical Decision Making MDM Narrative Medical decision making narrative: Given his presentation have low suspicion for appendicitis. There is no hernia felt on the exam. He has no testicular tenderness. I do suspect that this is a pulled abdominal muscle. Low suspicion for hernia. Will treat with anti-inflammatories. No indication for labs or radiologic studies. Was given return precautions and follow-up instructions. He expressed understanding and agreement. Discharge Plan Departure Patient Disposition: Home Clinical Impression: Strain of abdominal muscle Instructions: DI for Abdominal Muscle Strain Activity Restrictions/Additional Instructions: I do not feel any hernia on your exam today. I suspect that this is just a strain of your abdominal muscle. You can take anti-inflammatories for any discomfort. Contact your primary doctor for follow-up. Return to the emergency department for any new or worsening symptoms. Prescriptions: No Action bupropion HCl 150 mg tablet sustained-release 12 hr 150 mg PO Q12H RF: 0 cyclobenzaprine 10 mg tablet 20 mg PO Q8H PRN (Reason: muscle spasm) Qty: 14 RF: 0 hydrocodone-acetaminophen 5-325 mg tablet 1 tab PO Q6H PRN (Reason: acute shoulder pain/injury) Qty: 7 RF: 0 meloxicam 15 mg tablet 15 mg PO DAILY Qty: 14 RF: 0 diazepam [Valium] 5 mg tablet 5 mg PO TID PRN (Reason: muscle spasm) Qty: 6 RF: 0 Referrals: Sean Restrepo MD [Primary Care Provider] -
[2021-07-12] MEDS: KETOROLAC 30 MG/ML VIAL IM (23:18)
== END 2021-07-12 23:31 | disposition home or self-care (01) ==
PROVIDERS: Emergency Provider Emergency Medicine; Family Provider Family Medicine; PCP Family Medicine
DX: S39.011A Strain of muscle, fascia and tendon of abdomen, initial encounter (principal); X50.9XXA Other and unspecified overexertion or strenuous movements or postures, initial encounter
CPT/HCPCS: 96372; 99283; J1885

== ENCOUNTER 2021-10-09 14:26 | Emergency (ER) | payer OTHER, SELFPAY ==
[2021-10-09] VITALS (7 sets, daily range): BP systolic 127–138; BP diastolic 61–83; PULSE 79–100; RESP 18–20; TEMP 36.4–36.7; O2SAT 98–100; BMI 42.0
--- NOTE | 2021-10-09 19:28 | ED_ITS ---
HPI - Back Pain/Injury General Chief Complaint: Back Pain/Injury Stated Complaint: Back pain 2 days Time Seen by Provider: 10/09/21 19:13 Source: patient Mode of arrival: Ambulatory History of Present Illness HPI Narrative: Patient is a 35-year-old male is here for evaluation of midline lower back discomfort also with sounds like syncopal episodes today. He states he was sitting on the toilet. He stood up. Became very lightheaded. Had what sounds like a she syncopal episode. Recovered very quickly afterwards. Was able to walk out to the other room where the rest of the family was. He told the family was not feeling well. Adult sounds like a 2nd syncopal episode. He did report he was having an increase in lower back pain that time. Did have some reported shaking activity but again was back to normal probably quickly after afterwards as well. Related Data Home Medications Medication Instructions Recorded Confirmed bupropion HCl 150 mg tablet,12 hr 150 mg PO Q12H 03/04/19 03/04/19 sustained-release Previous Rx's Medication Instructions Recorded cyclobenzaprine 10 mg tablet 20 mg PO Q8H PRN #14 tab 03/04/19 hydrocodone 5 mg-acetaminophen 325 1 tab PO Q6H PRN #7 tab 03/04/19 mg tablet meloxicam 15 mg tablet 15 mg PO DAILY #14 tab 03/04/19 diazepam 5 mg tablet (Valium) 5 mg PO TID PRN #6 tab 08/15/20 Allergies Allergy/AdvReac Type Severity Reaction Status Date / Time No Known Drug Allergies Allergy Verified 08/24/18 11:36 Review of Systems Constitutional Constitutional: Denies fever(s) and Denies headache(s) ENT Ears, Nose, Mouth, and Throat: Denies headache(s) Cardiovascular Cardiovascular: Reports system reviewed and no additional complaints, except as documented, Denies chest pain and Reports syncope Respiratory Respiratory: Reports system reviewed and no additional complaints, except as documented Gastrointestinal Gastrointestinal: Reports system reviewed and no additional complaints, except as documented Genitourinary Genitourinary: Reports system reviewed and no additional complaints, except as documented Musculoskeletal Musculoskeletal: Denies numbness and Denies tingling Integumentary/Breasts Skin/Breast: Reports system reviewed and no additional complaints, except as documented Neurologic Neurologic: Reports system reviewed and no additional complaints, except as documented, Reports syncope, Denies headache(s), Denies numbness and Denies tingling Hematologic/Lymphatic On Anticoagulants: No Allergic/Immunologic Allergic/Immunologic: Reports system reviewed and no additional complaints, except as documented Patient History Medical History Carpal tunnel syndrome on both sides History of asthma History of sciatica Surgical History No history of previous surgery Social History Smoking Status: Former smoker Smoking Status: Former smoker alcohol intake frequency: 0-2 drinks per day Substance Use Type: does not use Exam Initial Vital Signs Initial Vital Signs: Vital Signs Temperature 97.6 F 10/09/21 14:31 Pulse Rate 100 H 10/09/21 14:31 Respiratory Rate 18 10/09/21 14:31 Blood Pressure 127/82 10/09/21 14:31 Pulse Oximetry 98 10/09/21 14:31 Const General: cooperative, comfortable, well developed and well groomed Limitations: mental status not altered HENMS Head: normal to inspection and normocephalic Resp Effort & Inspection: normal respiratory effort Auscultation: clear to auscultation bilaterally Cardio Rate: regular rate Rhythm: regular rhythm GI Inspection: non-distended Palpation: soft, No firm and No tender General: bimanual renal exam normal bilaterally Back/Spine/Pelvis Back: normal to inspection Skin Lesions: no lesions Rashes: no rashes Neuro General: patient alert, patient awake and patient oriented x3 Extrem General: normal to inspection and capillary refill normal Psych Appearance: grossly normal and well kempt Course Orders Ordered: ED Orders 10/09/21 19:29 EKG-12 Lead Stat 10/09/21 19:40 Basic Metabolic Panel Stat Complete Blood Count AUTO DIFF Stat Vital Signs Vital signs: Vital Signs - 8 hr 10/09/21 18:27 10/09/21 18:30 10/09/21 19:00 Temperature Pulse Rate 80 87 94 H Respiratory Rate Blood Pressure 138/83 Pulse Oximetry 98 98 100 10/09/21 19:30 10/09/21 20:45 10/09/21 20:53 Temperature 98.1 F Pulse Rate 88 79 Respiratory Rate 20 Blood Pressure 130/61 Pulse Oximetry 98 98 MDM - Back Pain/Injury Lab Data Attestation: I reviewed the patient's lab results. Result diagrams: 10/09/21 19:40 10/09/21 19:40 Labs: Lab Results 10/09/21 10/09/21 Range/Units 19:40 19:40 WBC 10.3 (4.5-11.0) X10^3/uL RBC 5.67 (4.5-5.9) X10^6/uL Hgb 16.1 (13.5-17.5) g/dL Hct 47.9 (41-53) % MCV 84.5 (80-100) fL MCH 28.4 (26-34) PG MCHC 33.6 (30-36) % RDW 13.8 (11.6-14.8) % Plt Count 324 (150-400) X10^3/uL Neut % (Auto) 78.2 H (50-75) % Lymph % (Auto) 16.3 L (25-40) % [place] % (Auto) 4.6 (3-14) % Eos % (Auto) 0.5 L (2-4) % Baso % (Auto) 0.4 (0-2) % Neut # (Auto) 8100 H (7310-0788) /uL Lymph # (Auto) 1700 (3808-9460) /uL [place] # (Auto) 500 (0-900) /uL Eos # (Auto) 100 (0-450) /uL Baso # (Auto) 0 (0-100) /uL Sodium 140 (137-145) mmol/L Potassium 5.1 (3.4-5.1) mmol/L Chloride 98 (98-107) mmol/L Carbon Dioxide 31 (22-32) mmol/L BUN 15 (9-20) mg/dL Creatinine 1.33 H (0.66-1.25) mg/dL Estimated GFR > 60.0 (>60) mL/min BUN/Creatinine Ratio 11.3 (6-22) Glucose 134 H (70-100) mg/dL Calcium 10.4 H (8.4-10.2) mg/dL ECG Data Attestation: I personally reviewed and interpreted this ECG as follows: Prior ECG tracings: not available for review Interpretation: Sinus rhythm Ventricular rate 86 Normal axis Normal QRS Normal QTC No ST T wave changes MDM Narrative Medical decision making narrative: Labs unremarkable. EKG is unremarkable. Low suspicion that patient had seizur e-like activity. Do suspect a syncopal episode most likely from an increase in his lower back discomfort. No indication for further radiologic studies. He has medication at home to help with his back pain. He was given return precautions and follow-up instructions. He expressed understanding and agreement. Discharge Plan Departure Patient Disposition: Home Clinical Impression: Lower back pain, Syncope Instructions: DI for Syncope in Adults (Fainting), DI for Low Back Pain Activity Restrictions/Additional Instructions: Your workup here in the emergency department is very reassuring. Continue to take all of your medications as directed. It is important that you may contact the primary doctor. You can contact [phone]. This is the call center here at the [facility] that can help you with establish a primary provider. Return to the emergency department for any new symptoms. Prescriptions: No Action bupropion HCl 150 mg tablet sustained-release 12 hr 150 mg PO Q12H 0RF cyclobenzaprine 10 mg tablet 20 mg PO Q8H PRN (Reason: muscle spasm) Qty: 14 0RF Rx Instructions: do not drive hydrocodone-acetaminophen 5-325 mg tablet 1 tab PO Q6H PRN (Reason: acute shoulder pain/injury) Qty: 7 0RF Rx Instructions: do not drive meloxicam 15 mg tablet 15 mg PO DAILY Qty: 14 0RF Rx Instructions: not with other NSAIDs diazepam [Valium] 5 mg tablet 5 mg PO TID PRN (Reason: muscle spasm) Qty: 6 0RF Referrals: Syed Griggs MD [Primary Care Provider] -
--- NOTE | 2021-10-09 19:49 | PC.NURSE ---
During assessment, pt also reports near syncopal episode while going to the bathroom today. Got up from toilet, walked into dining room and then had syncopal episode after sitting down in chair. Pt states I felt numb all over and was shaking, felt queasy after. MD in room while pt was talking about this.
[2021-10-09 19:50] LABS: Add Manual Diff / Slide Review NO; Basophils Absolute Auto 0 /uL (0-100); Basophils Percent Auto 0.4 % (0-2); Eosinophils Absolute Auto 100 /uL (0-450); Eosinophils Percent Auto 0.5 % (2-4); Hematocrit 47.9 % (41-53); Hemoglobin 16.1 g/dL (13.5-17.5); Lymphocytes Absolute Auto 1700 /uL (1100-4500); Lymphocytes Percent Auto 16.3 % (25-40); Mean Corpuscular HGB Conc 33.6 % (30-36); Mean Corpuscular Hemoglobin 28.4 PG (26-34); Mean Corpuscular Volume 84.5 fL (80-100); Monocytes Absolute Auto 500 /uL (0-900); Monocytes Percent Auto 4.6 % (3-14); Neutrophils Absolute Auto 8100 /uL (1500-7000); Neutrophils Percent Auto 78.2 % (50-75); Platelet Count 324 X10^3/uL (150-400); Red Blood Cell Count 5.67 X10^6/uL (4.5-5.9); Red Cell Distribution Width 13.8 % (11.6-14.8); White Blood Cell Count 10.3 X10^3/uL (4.5-11.0)
[2021-10-09 20:19] LABS: BUN Creatinine Ratio 11.3 (6-22); Blood Urea Nitrogen 15 mg/dL (9-20); Calcium 10.4 mg/dL (8.4-10.2); Carbon Dioxide 31 mmol/L (22-32); Chloride 98 mmol/L (98-107); Estimated Glomerular Filt Rate > 60.0 mL/min (>60); Glucose 134 mg/dL (70-100); HEMOLYSIS < 15 (0-50); Potassium 5.1 mmol/L (3.4-5.1); Sodium 140 mmol/L (137-145)
== END 2021-10-09 21:06 | disposition home or self-care (01) ==
PROVIDERS: Emergency Provider Emergency Medicine; Family Provider Family Medicine; PCP Family Medicine
DX: M54.50 Low back pain, unspecified (principal); R55 Syncope and collapse; Z87.891 Personal history of nicotine dependence
CPT/HCPCS: 36415; 80048; 85025; 93005; 99283; 99284

== ENCOUNTER 2023-07-03 10:43 | Emergency (ER) | payer OTHER, SELFPAY ==
[2023-07-03 10:45] VITALS: BP 141/91; PULSE 91; RESP 16; TEMP 36.3; O2SAT 98; BMI 42.0
[2023-07-03] MEDS: ONDANSETRON 4 MG ODT SL (10:51)
--- NOTE | 2023-07-03 11:15 | DI.CT.S_ITS ---
PROCEDURE: CT KIDNEY URETER BLADDER (KUB) INDICATIONS: Right flank pain TECHNIQUE: Axial sections were acquired from the lung bases to the pubic symphysis. Coronal and sagittal reformats were performed. For radiation dose reduction, the following was used: automated exposure control, adjustment of mA and/or kV according to patient size. COMPARISON: None. FINDINGS: Image quality: Excellent. Lung bases: Unremarkable. Heart: No significant findings. URINARY: Right Kidney: No stones or hydronephrosis. Right Ureter: No hydroureter. Left Kidney: No stones or hydronephrosis. Left Ureter: No hydroureter. Bladder: The urinary bladder is relatively decompressed, which limits its evaluation. No stones. ABDOMEN: Liver: Unremarkable. Gallbladder: Unremarkable. Biliary ducts: Unremarkable. Pancreas: Unremarkable. Spleen: Unremarkable. Adrenal Glands: Unremarkable. Stomach and Bowel: The terminal ileum is abnormal, with submucosal deposition of fat. No significant surrounding inflammatory change can be seen. No significant abnormality of the cecum can be seen. Stomach, small bowel loops, and colon are otherwise unremarkable. A normal appendix is noted. Peritoneum: No abnormal intraperitoneal fluid. No free air. Ventral Wall: No hernia. Abdominal Nodes: No enlarged retroperitoneal or mesenteric lymph nodes. Vessels: Aorta and inferior vena cava are normal in size. PELVIS: Pelvic Organs: Unremarkable. Pelvic Nodes: Unremarkable. Miscellaneous: Bilateral fat containing inguinal hernias are seen, right larger than left. Bones: Unremarkable. IMPRESSION: No kidney stones are seen. No hydronephrosis or findings of obstructive uropathy. Abnormal terminal ileum, with submucosal deposition of fat. No active inflammatory change is identified, however. This finding is commonly observed in patients with Crohn's disease. Please correlate with patient history. Additional findings: Normal appendix Bilateral fat containing inguinal hernias Dictated by: Dru Olguin M.D. on 07/03/2023 at 11:30 Approved by: Dru Olguin M.D. on 07/03/2023 at 11:35
--- NOTE | 2023-07-03 11:16 | ED_ITS ---
HPI - Abdominal Pain General Chief Complaint: Urogenital-Male Stated Complaint: pain RT flank going to kidney/N/D Time Seen by Provider: 07/03/23 11:09 Source: patient Mode of arrival: Ambulatory History of Present Illness HPI narrative: Patient here for right flank pain right groin pain ongoing since yesterday morning when he awoke with this. Had nausea and vomiting with this as well sweating. No urinary urgency or frequency or hematuria. Nothing makes the pain better or worse. No discomfort with movement or palpation. No prior history of kidney stones. No fever or chills Related Data Home Medications Medication Instructions Recorded Confirmed bupropion HCl 150 mg tablet,12 hr 150 mg PO Q12H 03/04/19 03/04/19 sustained-release Previous Rx's Medication Instructions Recorded cyclobenzaprine 10 mg tablet 20 mg (2 x 10 mg) PO Q8H PRN 03/04/19 muscle spasm #14 tabs hydrocodone 5 mg-acetaminophen 325 1 tab PO Q6H PRN acute shoulder 03/04/19 mg tablet pain/injury #7 tabs meloxicam 15 mg tablet 15 mg PO DAILY shoulder/arm pain 03/04/19 #14 tabs diazepam 5 mg tablet (Valium) 5 mg PO TID PRN muscle spasm #6 08/15/20 tabs Allergies Allergy/AdvReac Type Severity Reaction Status Date / Time No Known Drug Allergies Allergy Verified 07/03/23 10:45 Review of Systems Review of Systems Narrative: GENERAL: negative chills, fatigue, malaise, fever, sweats. HEENT: negative sinus pain, ear pain, sore throat RESPIRATORY: negative dyspnea, cough CARDIOVASCULAR: negative chest pain, palpitations GASTROINTESTINAL: Positive flank and nausea, vomiting, abdominal pain : negative dysuria, frequency, hematuria MUSCULOSKELETAL: negative muscle or bony pain SKIN: negative rash, skin lesions NEUROLOGIC: negative weakness, numbness ROS Unobtainable: All systems reviewed & are unremarkable except as noted in HPI and below Patient History Medical History (Updated 07/18/23 @ 00:00 by ) Carpal tunnel syndrome on both sides History of sciatica History of asthma Surgical History No history of previous surgery Social History Smoking Status: Former smoker Smoking Status: Former smoker alcohol intake frequency: holidays/special occasions only Substance Use Type: does not use Exam Narrative Exam Narrative: GENERAL: in no distress, not toxic not dyspneic HEAD: Normocephalic. EYES: Pupils equal round ENT: Mucous membranes moist. NECK: Trachea midline. CARDIOVASCULAR: Regular rate and rhythm RESPIRATORY: Clear to auscultation. Breath sounds equal bilaterally. No wheezes, rales, or rhonchi. GASTROINTESTINAL: Abdomen soft, non-tender abdomen is soft, nontender. No peritoneal signs. No McBurney point tenderness. No CVA tenderness. Bowel sounds are present. No pain out of proportion to exam EXTREMITIES: No gross deformities. BACK: No flank tenderness. NEURO: AOx4. SKIN: Warm and dry PSYCH: Not anxious, is cooperative Initial Vital Signs Initial Vital Signs: Vital Signs Temperature 97.3 F L 07/03/23 10:45 Pulse Rate 91 H 07/03/23 10:45 Respiratory Rate 16 07/03/23 10:45 Blood Pressure 141/91 H 07/03/23 10:45 Pulse Oximetry 98 07/03/23 10:45 Oxygen Delivery Method Room Air 07/03/23 10:45 Course Orders Ordered: Discontinued Medications Sodium Chloride (Normal Saline 0.9%) 1,000 mls @ 1,000 mls/hr IV BOLUS ONE Stop: 07/03/23 12:14 Last Infusion: 07/03/23 12:56 Dose: Infused Documented By: Admin: 07/03/23 11:50 Dose: 1,000 mls/hr Documented By: Ketorolac Tromethamine (Ketorolac 30 Mg/Ml Vial) 15 mg IV NOW ONE Stop: 07/03/23 11:16 Last Admin: 07/03/23 11:50 Dose: 15 mg Documented By: Ondansetron HCl (Ondansetron 4 Mg Odt) 4 mg SL NOW PRN PRN Reason: Nausea And Vomiting Last Admin: 07/03/23 10:51 Dose: 4 mg Documented By: MELISSA Vital Signs Vital signs: Vital Signs - 8 hr 07/03/23 10:45 07/03/23 11:31 07/03/23 11:39 Temperature 97.3 F L Pulse Rate 91 H 78 Respiratory Rate 16 Blood Pressure 141/91 H 174/99 H Pulse Oximetry 98 99 Oxygen Delivery Method Room Air 07/03/23 12:00 07/03/23 12:01 07/03/23 12:01 Temperature Pulse Rate 63 63 Respiratory Rate Blood Pressure 145/67 H Pulse Oximetry 96 96 Oxygen Delivery Method MDM - Abdominal Pain Lab Data 07/03/23 11:40 07/03/23 11:40 Labs: Lab Results 07/03/23 Range/Units 11:40 WBC 7.9 (4.5-11.0) X10^3/uL RBC 5.39 (4.5-5.9) X10^6/uL Hgb 15.2 (13.5-17.5) g/dL Hct 45.3 (41-53) % MCV 84.0 (80-100) fL MCH 28.3 (26-34) PG MCHC 33.6 (30-36) % RDW 14.1 (11.6-14.8) % Plt Count 282 (150-400) X10^3/uL Neut % (Auto) 75.7 H (50-75) % Lymph % (Auto) 17.2 L (25-40) % [place] % (Auto) 5.7 (3-14) % Eos % (Auto) 0.8 L (2-4) % Baso % (Auto) 0.6 (0-2) % Neut # (Auto) 6000 (9229-7806) /uL Lymph # (Auto) 1400 (5554-3097) /uL [place] # (Auto) 400 (0-900) /uL Eos # (Auto) 100 (0-450) /uL Baso # (Auto) 100 (0-100) /uL Sodium 138 (137-145) mmol/L Potassium 4.3 (3.4-5.1) mmol/L Chloride 102 (98-107) mmol/L Carbon Dioxide 26 (22-32) mmol/L BUN 13 (9-20) mg/dL Creatinine 1.17 (0.66-1.25) mg/dL Estimated GFR > 60 (>60) mL/min BUN/Creatinine Ratio 11.1 (6-22) Glucose 105 H (70-100) mg/dL Calcium 9.8 (8.4-10.2) mg/dL Total Bilirubin 0.8 (0.2-1.3) mg/dL AST 27 (17-59) IU/L ALT 40 (<50) IU/L Alkaline Phosphatase 83 (38-126) U/L Total Protein 8.2 (6.3-8.2) g/dL Albumin 4.8 (3.5-5.0) g/dL Globulin 3.4 (1.7-4.1) g/dL Albumin/Globulin Ratio 1.4 (1.0-2.8) Point of care testing: Urine Dip Bedside Urine Glucose Negative Bedside Urine Bilirubin - Negative Bedside Urine Ketone - Negative Urine Specific [place] 1.010 Bedside Urine Occult Blood - Negative Bedside Urine pH 7.5 Bedside Urine Protein - Negative Bedside Urine Urobilinogen - Negative Bedside Urine Nitrite - Negative Bedside Urine Leukocytes - Negative Esterase Imaging Data CT scan - abdomen/pelvis: Radiologist's Impression: [address] [address] [address] Scan Report Signed Patient: Hans Fonseca MR#: [id number] : 1985 Acct:[id number] Age/Sex: 37 / M Date of Service: 07/03/23 Loc: ED Accession Number: [id number] ?? Procedure: CT kidney ureter bladder (KUB) Ordering Provider: Giuliano Guillaume MD PROCEDURE:? CT KIDNEY URETER BLADDER (KUB) ? INDICATIONS:? Right flank pain ? TECHNIQUE:? Axial sections were acquired from the lung bases to the pubic symphysis.? Coronal and sagittal reformats were performed.? For radiation dose reduction, the following was used: ?automated exposure control, adjustment of mA and/or kV according to patient size.? ? COMPARISON:? None. ? FINDINGS:? Image quality:? Excellent.? ? Lung bases:? Unremarkable.? ? Heart:? No significant findings. ? URINARY: Right Kidney: ? No stones or hydronephrosis.? Right Ureter:? No hydroureter.? ? Left Kidney: ? No stones or hydronephrosis. Left Ureter:? No hydroureter.? ? Bladder:? The urinary bladder is relatively decompressed, which limits its evaluation.? No stones. ? ? ? ABDOMEN: Liver:? Unremarkable.? ? Gallbladder:? Unremarkable.? ? Biliary ducts:? Unremarkable.? ? Pancreas:? Unremarkable.? ? Spleen:? Unremarkable.? ? Adrenal Glands:? Unremarkable.? ? ? Stomach and Bowel:? The terminal ileum is abnormal, with submucosal deposition of fat.? No significant surrounding inflammatory change can be seen.? No significant abnormality of the cecum can be seen. Stomach, small bowel loops, and colon are otherwise unremarkable.? A normal appendix is noted.? Peritoneum:? No abnormal intraperitoneal fluid.? No free air.? ? Ventral Wall: ? No hernia.? Abdominal Nodes:? No enlarged retroperitoneal or mesenteric lymph nodes.? Vessels:? Aorta and inferior vena cava are normal in size.? ? PELVIS: Pelvic Organs:? Unremarkable.? ? Pelvic Nodes: Unremarkable. Miscellaneous:? Bilateral fat containing inguinal hernias are seen, right larger than left. ? Bones:? Unremarkable. ? IMPRESSION:? ? No kidney stones are seen. ? No hydronephrosis or findings of obstructive uropathy. ? Abnormal terminal ileum, with submucosal deposition of fat.? No active inflammatory change is identified, however.? This finding is commonly observed in patients with Crohn's disease.? Please correlate with patient history. ? ? Additional findings:? Normal appendix Bilateral fat containing inguinal hernias ? ? ? Dictated by: Dru Olguin M.D. on 07/03/2023 at 11:30 ? ? Approved by: Dru Olguin M.D. on 07/03/2023 at 11:35 ? MDM Narrative Medical decision making narrative: Patient here for right flank pain right groin pain ongoing since yesterday morning when he awoke with this. Had nausea and vomiting with this as well sweating. No urinary urgency or frequency or hematuria. Nothing makes the pain better or worse. No discomfort with movement or palpation. No prior history of kidney stones. No fever or chills After history and exam CBC CMP urinalysis Toradol normal saline Zofran CT KUB [facility] CC: Right flank pain Complicating co-morbidities: None Data collected from: Patient Medical records reviewed: No recent visit for this complaint Differential considered: Includes but not limited to kidney stone ureteral stone pyelonephritis appendicitis constipation bowel obstruction Exam documented above, pertinent findings include: Nontender abdomen Lab Test results independently reviewed as above. Pertinent findings: WBC 7.9 hemoglobin 15.2 sodium 138 potassium 4.3 AST 27 ALT 40 Imaging studies independently reviewed: CT KUB no acute finding Consultations: None indicated Treatments: Toradol Zofran normal saline Re-evaluations: 12:52 p.m.. Reviewed results with patient and . is in nursing school. At this time they are reassuring labs exam and imaging. Reviewed with patient no history or personal history or family history of Crohn's disease or ulcerative colitis. Referral for General surgery/colonoscopy provided. Patient is pain-free at this time. He desires discharge home. Return precautions reviewed Discussion: Appropriate for discharge home. Exam laboratory studies imaging are reassuring. Return precautions reviewed with patient and . They desire discharge home. Referral for General surgery and colonoscopy provided. Not toxic at discharge. Diagnosis: Abdominal pain Discharge Plan Departure Patient Disposition: Home Clinical Impression: Abdominal pain Instructions: DI for Abdominal Pain-Adult Activity Restrictions/Additional Instructions: Please call provided general surgery office today to schedule outpatient colonoscopy. At this time laboratory studies exam and CT scan imaging are reassuring. You may continue Tylenol or ibuprofen for pain. Return if worse if any questions or concerns. Prescriptions: No Action bupropion HCl 150 mg tablet sustained-release 12 hr 150 mg PO Q12H cyclobenzaprine 10 mg tablet 20 mg PO Q8H PRN (Reason: muscle spasm) Qty: 14 0RF Rx Instructions: do not drive hydrocodone-acetaminophen 5-325 mg tablet 1 tab PO Q6H PRN (Reason: acute shoulder pain/injury) Qty: 7 0RF Rx Instructions: do not drive meloxicam 15 mg tablet 15 mg PO DAILY Qty: 14 0RF Rx Instructions: not with other NSAIDs diazepam [Valium] 5 mg tablet 5 mg PO TID PRN (Reason: muscle spasm) Qty: 6 0RF Referrals: Kamlesh Franks MD [Physician] - Miscellaneous,MD Nimesh [Primary Care Provider] - Stand Alone Forms: Patient Portal/API
[2023-07-03 11:31] VITALS: BP 174/99
[2023-07-03 11:39] VITALS: PULSE 78; O2SAT 99
[2023-07-03] MEDS: SODIUM CHLORIDE 0.9% 1,000 ML 1000 ML IV (11:50)
[2023-07-03] MEDS: KETOROLAC 30 MG/ML VIAL 15 MG IV (11:50)
[2023-07-03 11:59] LABS: Add Manual Diff / Slide Review NO; Basophils Absolute Auto 100 /uL (0-100); Basophils Percent Auto 0.6 % (0-2); Eosinophils Absolute Auto 100 /uL (0-450); Eosinophils Percent Auto 0.8 % (2-4); Hematocrit 45.3 % (41-53); Hemoglobin 15.2 g/dL (13.5-17.5); Lymphocytes Absolute Auto 1400 /uL (1100-4500); Lymphocytes Percent Auto 17.2 % (25-40); Mean Corpuscular HGB Conc 33.6 % (30-36); Mean Corpuscular Hemoglobin 28.3 PG (26-34); Monocytes Absolute Auto 400 /uL (0-900); Monocytes Percent Auto 5.7 % (3-14); Neutrophils Absolute Auto 6000 /uL (1500-7000); Neutrophils Percent Auto 75.7 % (50-75); Platelet Count 282 X10^3/uL (150-400); Red Blood Cell Count 5.39 X10^6/uL (4.5-5.9); Red Cell Distribution Width 14.1 % (11.6-14.8); White Blood Cell Count 7.9 X10^3/uL (4.5-11.0)
[2023-07-03 12:00] VITALS: PULSE 63; O2SAT 96
[2023-07-03 12:01] VITALS: BP 145/67; PULSE 63; O2SAT 96
[2023-07-03 12:25] LABS: Alanine Aminotransferase 40 IU/L (<50); Albumin 4.8 g/dL (3.5-5.0); Albumin Globulin Ratio 1.4 (1.0-2.8); Alkaline Phosphatase 83 U/L (38-126); Aspartate Aminotransferase 27 IU/L (17-59); BUN Creatinine Ratio 11.1 (6-22); Bilirubin Total 0.8 mg/dL (0.2-1.3); Blood Urea Nitrogen 13 mg/dL (9-20); Calcium 9.8 mg/dL (8.4-10.2); Carbon Dioxide 26 mmol/L (22-32); Chloride 102 mmol/L (98-107); Estimated Glomerular Filt Rate > 60 mL/min (>60); Globulin 3.4 g/dL (1.7-4.1); Glucose 105 mg/dL (70-100); HEMOLYSIS < 15 (0-50); Potassium 4.3 mmol/L (3.4-5.1); Sodium 138 mmol/L (137-145); Total Protein 8.2 g/dL (6.3-8.2)
[2023-07-03 12:30] VITALS: BP 142/70; PULSE 63; O2SAT 97
== END 2023-07-03 12:56 | disposition home or self-care (01) ==
PROVIDERS: Emergency Provider Emergency Medicine; Family Provider Family Medicine
DX: R10.31 Right lower quadrant pain (principal)
CPT/HCPCS: 36415; 74176; 80053; 81003; 85025; 96374; 99284; J1885

== ENCOUNTER 2023-09-06 13:10 | Emergency (ER) | payer OTHER, SELFPAY ==
[2023-09-06] VITALS (14 sets, daily range): BP systolic 139–156; BP diastolic 71–96; PULSE 68–99; RESP 18; TEMP 37–37.7; O2SAT 97–99; BMI 47.5
[2023-09-06 13:47] LABS: Add Manual Diff / Slide Review NO; Basophils Absolute Auto 100 /uL (0-100); Basophils Percent Auto 1.1 % (0-2); Eosinophils Absolute Auto 0 /uL (0-450); Eosinophils Percent Auto 0.6 % (2-4); Hematocrit 43.5 % (41-53); Hemoglobin 14.9 g/dL (13.5-17.5); Lymphocytes Absolute Auto 1300 /uL (1100-4500); Lymphocytes Percent Auto 18.3 % (25-40); Mean Corpuscular HGB Conc 34.2 % (30-36); Mean Corpuscular Hemoglobin 28.6 PG (26-34); Mean Corpuscular Volume 83.5 fL (80-100); Monocytes Absolute Auto 500 /uL (0-900); Monocytes Percent Auto 7.3 % (3-14); Neutrophils Absolute Auto 5100 /uL (1500-7000); Neutrophils Percent Auto 72.7 % (50-75); Platelet Count 268 X10^3/uL (150-400); Red Blood Cell Count 5.21 X10^6/uL (4.5-5.9); Red Cell Distribution Width 13.7 % (11.6-14.8)
[2023-09-06 13:58] LABS: Alanine Aminotransferase 39 IU/L (<50); Albumin 4.9 g/dL (3.5-5.0); Albumin Globulin Ratio 1.4 (1.0-2.8); Alkaline Phosphatase 71 U/L (38-126); Aspartate Aminotransferase 28 IU/L (17-59); Bilirubin Total 0.7 mg/dL (0.2-1.3); Blood Urea Nitrogen 13 mg/dL (9-20); Calcium 10.1 mg/dL (8.4-10.2); Carbon Dioxide 31 mmol/L (22-32); Chloride 101 mmol/L (98-107); Estimated Glomerular Filt Rate > 60 mL/min (>60); Globulin 3.6 g/dL (1.7-4.1); Glucose 106 mg/dL (70-100); HEMOLYSIS < 15 (0-50); Lipase 95 U/L (23-300); Potassium 4.4 mmol/L (3.4-5.1); Sodium 139 mmol/L (137-145); Total Protein 8.5 g/dL (6.3-8.2)
--- NOTE | 2023-09-06 14:00 | DI.US.S_ITS ---
PROCEDURE: US ABDOMEN LIMITED INDICATIONS: RIGHT LOWER QUADRANT PAIN TECHNIQUE: Real-time focused scanning was performed of the abdomen, with image documentation. COMPARISON: None. FINDINGS: The liver demonstrates normal size. The liver demonstrates generalized moderately increased echogenicity. This decreases ultrasound sensitivity for detection of hepatic masses. No findings of gallstones or sludge are seen. The gallbladder wall is not thickened, measuring 3 mm or less. No specific pericholecystic fluid is seen. The sonographic Nascimento sign is negative. There is no biliary dilatation, the common bile duct measures 3 mm. No significant pancreatic abnormality is seen on these images. This study is limited by body habitus. IMPRESSION: No significant abnormality is seen. The history given for this study is right lower quadrant pain, yet the right lower quadrant is not examined. If clinically appropriate, additional imaging of the right lower quadrant could be performed at no additional charge to the patient. Note: Case discussed by telephone Dr. Calvo at 3:13 p.m. [place] time on September 06, 2023. Dictated by: Dru Olguin M.D. on 09/06/2023 at 14:11 Approved by: Dru Olguin M.D. on 09/06/2023 at 14:15
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
[2023-09-06] MEDS: ONDANSETRON 4 MG/2 ML INJ IV (15:29)
[2023-09-06] MEDS: KETOROLAC 30 MG/ML VIAL 15 MG IV (15:33)
== END 2023-09-06 17:30 | disposition home or self-care (01) ==
PROVIDERS: Emergency Provider Emergency Medicine; Family Provider Family Medicine; Visit Provider Emergency Medicine
DX: K40.20 Bilateral inguinal hernia, without obstruction or gangrene, not specified as recurrent (principal); K76.0 Fatty (change of) liver, not elsewhere classified
CPT/HCPCS: 36415; 74177; 76705; 80053; 81003; 83690; 85025; 96374; 96375; 99284; J1885; J2405; Q9967

== ENCOUNTER → 2024-02-08 12:40 | Outpatient (CLI) | payer OTHER, SELFPAY ==
--- NOTE | 2024-02-08 12:42 | DI.RAD.S_ITS ---
PROCEDURE: XR THORACIC SPINE 2V INDICATIONS: Thoracic neck pain TECHNIQUE: 3 views of the thoracic spine were acquired. COMPARISON: None. FINDINGS: Bones: No fractures or dislocations. No suspicious bony lesions. 12 pairs of ribs are noted, and appear intact where visualized. Soft tissues: No paravertebral stripe thickening. IMPRESSION: No acute bony abnormality. Dictated by: Dre Rangel M.D. on 02/08/2024 at 13:27 Approved by: Dre Rangel M.D. on 02/08/2024 at 13:28
--- NOTE | 2024-02-08 12:42 | DI.RAD.S_ITS ---
PROCEDURE: XR CERVICAL SPINE 2V OR 3V INDICATIONS: Cervical neck pain, heard a pop TECHNIQUE: 3 view(s) of the cervical spine were acquired. COMPARISON: None. FINDINGS: Bones: No fractures or dislocations to the T1 level. The lateral masses of C1 appear intact on the odontoid view. No suspicious bony lesions. Soft tissues: No prevertebral soft tissue swelling. IMPRESSION: No displaced fracture or traumatic subluxation. Dictated by: Dre Rangel M.D. on 02/08/2024 at 13:27 Approved by: Dre Rangel M.D. on 02/08/2024 at 13:27
== END ==
LOC: RAD 12:42
PROVIDERS: Family Provider Family Medicine; Referring Provider Physician Assistant Medical; Visit Provider Physician Assistant Medical
DX: M54.6 Pain in thoracic spine (principal); M54.2 Cervicalgia
CPT/HCPCS: 72040; 72070

== ENCOUNTER 2024-04-07 10:49 | Emergency (ER) | payer OTHER, SELFPAY ==
[2024-04-07] VITALS (8 sets, daily range): BP systolic 114–142; BP diastolic 68–81; PULSE 59–83; RESP 17; TEMP 36.6; O2SAT 96–99; BMI 43.8
--- NOTE | 2024-04-07 10:58 | DI.CT.S_ITS ---
PROCEDURE: CT ABDOMEN PELVIS W CON INDICATIONS: LLQ abd pain TECHNIQUE: After the administration of intravenous contrast, axial sections acquired from the lung bases to the pubic symphysis. Coronal and sagittal reformats were performed. For radiation dose reduction, the following was used: automated exposure control, adjustment of mA and/or kV according to patient size. COMPARISON: [facility], CT, CT ABDOMEN PELVIS W CON, 09/06/2023, 15:35. FINDINGS: Image quality: Diagnostic. Lower Chest: No significant findings. ABDOMEN: Liver: No solid mass. Gallbladder: No radiopaque gallstones or wall thickening. Biliary ducts: No biliary dilation. Pancreas: No ductal dilation. Spleen: Size is within normal limits. Adrenal Glands: No adrenal nodules. Kidneys and Ureters: No hydronephrosis. No solid mass. No complex renal cystic lesion which requires follow up. Stomach and Bowel: Normal colonic caliber, without significant wall thickening. Peritoneum: No abnormal intraperitoneal fluid. No free air. Ventral Wall: No significant ventral hernia. Abdominal Nodes: No retroperitoneal or mesenteric adenopathy by size criteria. Vessels: Aorta and inferior vena cava are normal in size. PELVIS: Pelvic Organs: Unremarkable. Bladder: No bladder wall thickening, accounting for underdistention. Pelvic Nodes: No enlarged lymph nodes. Miscellaneous: Small fat containing right inguinal hernia. Bones: No aggressive osseous abnormality. IMPRESSION: No acute abdominal process identified. Small fat containing right inguinal hernia. Dictated by: Jerod Riojas M.D. on 04/07/2024 at 12:25 Approved by: Jerod Riojas M.D. on 04/07/2024 at 12:28
--- NOTE | 2024-04-07 11:02 | ED.GENADULT ---
HPI - General Adult General Chief complaint: Abdominal Pain Stated complaint: severe lt lower abd pain Time Seen by Provider: 04/07/24 10:54 Source: patient Mode of arrival: Ambulatory History of Present Illness HPI narrative: 38-year-old male who is here for evaluation of left lower quadrant abdominal pain that has been present for the past couple days. No urinary symptoms. Has had some constipation issues but did have a bowel movement recently. No change when his abdominal pain with urination or bowel movements. He was still passing flatus. No vomiting. No fevers. He is known inguinal hernias. Has not tried anything for symptoms prior to arrival. Related Data Home Medications Medication Instructions Recorded Confirmed bupropion HCl 150 mg tablet,12 hr 150 mg PO Q12H 03/04/19 02/08/24 sustained-release Previous Rx's Medication Instructions Recorded cyclobenzaprine 10 mg tablet 20 mg (2 x 10 mg) PO Q8H PRN 03/04/19 muscle spasm #14 tabs hydrocodone 5 mg-acetaminophen 325 1 tab PO Q6H PRN acute shoulder 03/04/19 mg tablet pain/injury #7 tabs meloxicam 15 mg tablet 15 mg PO DAILY shoulder/arm pain 03/04/19 #14 tabs diazepam 5 mg tablet (Valium) 5 mg PO TID PRN muscle spasm #6 08/15/20 tabs Allergies Allergy/AdvReac Type Severity Reaction Status Date / Time No Known Drug Allergies Allergy Verified 04/07/24 10:51 Review of Systems Review of Systems Narrative: See HPI Patient History Medical History (Updated 04/07/24 @ 12:53 by Sean Green DO) Carpal tunnel syndrome on both sides History of sciatica History of asthma Surgical History No history of previous surgery Social History Smoking Status: Former smoker Smoking Status: Former smoker alcohol intake frequency: holidays/special occasions only Substance Use Type: does not use Exam Initial Vital Signs Initial Vital Signs: Vital Signs Temperature 97.8 F 04/07/24 10:50 Pulse Rate 83 04/07/24 10:50 Respiratory Rate 17 04/07/24 10:50 Blood Pressure 142/81 H 04/07/24 10:50 Pulse Oximetry 99 04/07/24 10:50 Oxygen Delivery Method Room Air 04/07/24 10:50 HENMI Head: normal to inspection and normocephalic Resp Effort & Inspection: normal respiratory effort Cardio Rate: regular rate GI Inspection: normal to inspection and non-distended Palpation: soft, No firm, No guarding and tender Back/Spine/Pelvis Back: No CVA tenderness Skin General: no rashes or lesions noted Neuro General: patient alert, patient awake and moves all extremities Course Orders Ordered: ED Orders 04/07/24 10:58 CT abdomen pelvis w con Stat 04/07/24 11:00 Complete Blood Count AUTO DIFF Stat Comprehensive Metabolic Panel Stat Lipase Stat Ondansetron HCl (Ondansetron 4 Mg/2 Ml Inj) 4 mg IV NOW PRN PRN Reason: Nausea And Vomiting Discontinued Medications Ketorolac Tromethamine (Ketorolac 30 Mg/Ml Vial) 30 mg IV NOW ONE Stop: 04/07/24 11:02 Last Admin: 04/07/24 11:16 Dose: 30 mg Documented By: ANN Vital Signs Vital signs: Vital Signs - 8 hr 04/07/24 10:50 Temperature 97.8 F Pulse Rate 83 Respiratory Rate 17 Blood Pressure 142/81 H Pulse Oximetry 99 Oxygen Delivery Method Room Air Medical Decision Making Lab Data Lab results reviewed: Yes I reviewed the patient's lab results. 04/07/24 11:00 04/07/24 11:00 Labs: Lab Results 04/07/24 Range/Units 11:00 WBC 7.3 (4.5-11.0) X10^3/uL RBC 5.19 (4.5-5.9) X10^6/uL Hgb 14.5 (13.5-17.5) g/dL Hct 43.9 (41-53) % MCV 84.5 (80-100) fL MCH 28.0 (26-34) PG MCHC 33.1 (30-36) % RDW 13.6 (11.6-14.8) % Plt Count 292 (150-400) X10^3/uL Neut % (Auto) 67.6 (50-75) % Lymph % (Auto) 22.7 L (25-40) % [place] % (Auto) 7.2 (3-14) % Eos % (Auto) 1.8 L (2-4) % Baso % (Auto) 0.7 (0-2) % Neut # (Auto) 4900 (4800-3765) /uL Lymph # (Auto) 1700 (8126-0077) /uL [place] # (Auto) 500 (0-900) /uL Eos # (Auto) 100 (0-450) /uL Baso # (Auto) 0 (0-100) /uL Sodium 140 (137-145) mmol/L Potassium 4.5 (3.4-5.1) mmol/L Chloride 107 (98-107) mmol/L Carbon Dioxide 26 (22-32) mmol/L BUN 13 (9-20) mg/dL Creatinine 1.31 H (0.66-1.25) mg/dL Estimated GFR > 60 (>60) mL/min BUN/Creatinine Ratio 9.9 (6-22) Glucose 106 H (70-100) mg/dL Calcium 9.3 (8.4-10.2) mg/dL Total Bilirubin 0.6 (0.2-1.3) mg/dL AST 31 (17-59) IU/L ALT 44 (<50) IU/L Alkaline Phosphatase 81 (38-126) U/L Total Protein 8.1 (6.3-8.2) g/dL Albumin 4.9 (3.5-5.0) g/dL Globulin 3.2 (1.7-4.1) g/dL Albumin/Globulin Ratio 1.5 (1.0-2.8) Lipase 88 (23-300) U/L Imaging Data CT scan - abdomen/pelvis: Radiologist's Impression: PROCEDURE: CT ABDOMEN PELVIS W CON INDICATIONS: LLQ abd pain TECHNIQUE: After the administration of intravenous contrast, axial sections acquired from the lung bases to the pubic symphysis. Coronal and sagittal reformats were performed. For radiation dose reduction, the following was used: automated exposure control, adjustment of mA and/or kV according to patient size. COMPARISON: [facility], CT, CT ABDOMEN PELVIS W CON, 09/06/2023, 15:35. FINDINGS: Image quality: Diagnostic. Lower Chest: No significant findings. ABDOMEN: Liver: No solid mass. Gallbladder: No radiopaque gallstones or wall thickening. Biliary ducts: No biliary dilation. Pancreas: No ductal dilation. Spleen: Size is within normal limits. Adrenal Glands: No adrenal nodules. Kidneys and Ureters: No hydronephrosis. No solid mass. No complex renal cystic lesion which requires follow up. Stomach and Bowel: Normal colonic caliber, without significant wall thickening. Peritoneum: No abnormal intraperitoneal fluid. No free air. Ventral Wall: No significant ventral hernia. Abdominal Nodes: No retroperitoneal or mesenteric adenopathy by size criteria. Vessels: Aorta and inferior vena cava are normal in size. PELVIS: Pelvic Organs: Unremarkable. Bladder: No bladder wall thickening, accounting for underdistention. Pelvic Nodes: No enlarged lymph nodes. Miscellaneous: Small fat containing right inguinal hernia. Bones: No aggressive osseous abnormality. IMPRESSION: No acute abdominal process identified. Small fat containing right inguinal hernia. MDM Narrative Medical decision making narrative: Labs unremarkable. Exam is benign. CT scans unremarkable. No indication for admission the hospital. No indication for surgical consultation. The patient understands lack of a definitive diagnosis. He was given return precautions and follow-up instructions. He expressed understanding and agreement. Discharge Plan Departure Patient Disposition: Home Clinical Impression: Abdominal pain Instructions: DI for Abdominal Pain-Adult Activity Restrictions/Additional Instructions: Continue to take all of your medications as directed. Recommend you contact your primary care doctor for a follow-up. Return to the emergency department for new or worsening symptoms. Prescriptions: No Action bupropion HCl 150 mg tablet sustained-release 12 hr 150 mg PO Q12H cyclobenzaprine 10 mg tablet 20 mg PO Q8H PRN (Reason: muscle spasm) Qty: 14 0RF Rx Instructions: do not drive hydrocodone-acetaminophen 5-325 mg tablet 1 tab PO Q6H PRN (Reason: acute shoulder pain/injury) Qty: 7 0RF Rx Instructions: do not drive meloxicam 15 mg tablet 15 mg PO DAILY Qty: 14 0RF Rx Instructions: not with other NSAIDs diazepam [Valium] 5 mg tablet 5 mg PO TID PRN (Reason: muscle spasm) Qty: 6 0RF Referrals: Tata,Doctor, MD [Primary Care Provider] - Stand Alone Forms: Patient Portal/API, Work Release Note
[2024-04-07] MEDS: KETOROLAC 30 MG/ML VIAL IV (11:16)
[2024-04-07 11:20] LABS: Add Manual Diff / Slide Review NO; Basophils Absolute Auto 0 /uL (0-100); Basophils Percent Auto 0.7 % (0-2); Eosinophils Absolute Auto 100 /uL (0-450); Eosinophils Percent Auto 1.8 % (2-4); Hematocrit 43.9 % (41-53); Hemoglobin 14.5 g/dL (13.5-17.5); Lymphocytes Absolute Auto 1700 /uL (1100-4500); Lymphocytes Percent Auto 22.7 % (25-40); Mean Corpuscular HGB Conc 33.1 % (30-36); Mean Corpuscular Volume 84.5 fL (80-100); Monocytes Absolute Auto 500 /uL (0-900); Monocytes Percent Auto 7.2 % (3-14); Neutrophils Absolute Auto 4900 /uL (1500-7000); Neutrophils Percent Auto 67.6 % (50-75); Platelet Count 292 X10^3/uL (150-400); Red Blood Cell Count 5.19 X10^6/uL (4.5-5.9); Red Cell Distribution Width 13.6 % (11.6-14.8); White Blood Cell Count 7.3 X10^3/uL (4.5-11.0)
[2024-04-07 11:33] LABS: Alanine Aminotransferase 44 IU/L (<50); Albumin 4.9 g/dL (3.5-5.0); Albumin Globulin Ratio 1.5 (1.0-2.8); Alkaline Phosphatase 81 U/L (38-126); Aspartate Aminotransferase 31 IU/L (17-59); BUN Creatinine Ratio 9.9 (6-22); Bilirubin Total 0.6 mg/dL (0.2-1.3); Blood Urea Nitrogen 13 mg/dL (9-20); Calcium 9.3 mg/dL (8.4-10.2); Carbon Dioxide 26 mmol/L (22-32); Chloride 107 mmol/L (98-107); Estimated Glomerular Filt Rate > 60 mL/min (>60); Globulin 3.2 g/dL (1.7-4.1); Glucose 106 mg/dL (70-100); HEMOLYSIS < 15 (0-50); Lipase 88 U/L (23-300); Potassium 4.5 mmol/L (3.4-5.1); Sodium 140 mmol/L (137-145); Total Protein 8.1 g/dL (6.3-8.2)
== END 2024-04-07 12:58 | disposition home or self-care (01) ==
PROVIDERS: Emergency Provider Emergency Medicine; Family Provider Family Medicine
DX: R10.32 Left lower quadrant pain (principal); K59.00 Constipation, unspecified
CPT/HCPCS: 36415; 74177; 80053; 81003; 83690; 85025; 96374; 99284; J1885; Q9967

== ENCOUNTER 2024-06-04 15:09 | Emergency (ER) | payer OTHER, SELFPAY ==
[2024-06-04 15:14] VITALS: BP 140/72; PULSE 74; RESP 18; TEMP 36.9; O2SAT 97; BMI 43.2
--- NOTE | 2024-06-04 15:19 | EKG_ITS ---
[address] [address] Test Date: 2024-06-04 Pat Name: Hans Fonseca Department: [facility] Room: Gender: Male Care Aide: PETE : 1985 Requested By: Order Number: [id number] Reading MD: Milton Crespo Measurements Intervals [place] Rate: 66 P: 26 DC: 140 QRS: -4 QRSD: 80 T: 2 QT: 402 QTc: 421 Interpretive Statements Normal sinus rhythm Electronically Signed On 06-07-2024 15:20:06 PDT by Milton Crespo
[2024-06-04] MEDS: ONDANSETRON 4 MG/2 ML INJ IV (15:27)
[2024-06-04 15:30] VITALS: PULSE 75; O2SAT 97
[2024-06-04 15:32] LABS: Add Manual Diff / Slide Review NO; Basophils Absolute Auto 100 /uL (0-100); Basophils Percent Auto 0.7 % (0-2); Eosinophils Absolute Auto 100 /uL (0-450); Eosinophils Percent Auto 1.1 % (2-4); Hematocrit 42.4 % (41-53); Hemoglobin 14.3 g/dL (13.5-17.5); Lymphocytes Absolute Auto 1200 /uL (1100-4500); Mean Corpuscular HGB Conc 33.6 % (30-36); Mean Corpuscular Hemoglobin 28.4 PG (26-34); Mean Corpuscular Volume 84.5 fL (80-100); Monocytes Absolute Auto 400 /uL (0-900); Monocytes Percent Auto 5.4 % (3-14); Neutrophils Absolute Auto 5900 /uL (1500-7000); Neutrophils Percent Auto 76.8 % (50-75); Platelet Count 275 X10^3/uL (150-400); Red Blood Cell Count 5.02 X10^6/uL (4.5-5.9); Red Cell Distribution Width 13.7 % (11.6-14.8); White Blood Cell Count 7.8 X10^3/uL (4.5-11.0)
[2024-06-04 15:36] VITALS: BP 143/77; PULSE 69; O2SAT 96
[2024-06-04 15:54] LABS: Alanine Aminotransferase 46 IU/L (<50); Albumin 4.7 g/dL (3.5-5.0); Albumin Globulin Ratio 1.5 (1.0-2.8); Alkaline Phosphatase 85 U/L (38-126); Aspartate Aminotransferase 32 IU/L (17-59); BUN Creatinine Ratio 8.9 (6-22); Bilirubin Total 0.5 mg/dL (0.2-1.3); Blood Urea Nitrogen 12 mg/dL (9-20); Calcium 9.2 mg/dL (8.4-10.2); Carbon Dioxide 26 mmol/L (22-32); Chloride 104 mmol/L (98-107); Estimated Glomerular Filt Rate > 60 mL/min (>60); Globulin 3.1 g/dL (1.7-4.1); Glucose 111 mg/dL (70-100); HEMOLYSIS < 15 (0-50); Sodium 138 mmol/L (137-145); Total Protein 7.8 g/dL (6.3-8.2)
[2024-06-04 16:00] VITALS: BP 127/65; PULSE 78; O2SAT 96
[2024-06-04 16:05] LABS: Troponin I < 0.012 ng/mL (0.01-0.034)
--- NOTE | 2024-06-04 16:34 | ED_ITS ---
HPI - Neuro Symptoms/Deficit General Chief Complaint: Dizziness Stated Complaint: R Arm/Facial Numbness Time Seen by Provider: 06/04/24 16:24 Source: patient and EMS Mode of arrival: EMS History of Present Illness HPI Narrative: Patient is a 38-year-old male without significant past medical history presents today with right-sided numbness on his face. 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 He felt like some numbness maybe in his right arm but he had no weakness he kept moving it. He felt like he might pass out but he never passed out. He had blurry vision but no double vision. He was able to speak the time everyone was able to understand him he had no facial droop. He has no known history of CVA or coronary artery disease. He has no known family history of either. He reports symptoms lasted maybe 30 minutes and have come completely resolved. On Anticoagulants: No Related Data Home Medications Medication Instructions Recorded Confirmed bupropion HCl 150 mg tablet,12 hr 150 mg PO Q12H 03/04/19 02/08/24 sustained-release Previous Rx's Medication Instructions Recorded cyclobenzaprine 10 mg tablet 20 mg (2 x 10 mg) PO Q8H PRN 03/04/19 muscle spasm #14 tabs hydrocodone 5 mg-acetaminophen 325 1 tab PO Q6H PRN acute shoulder 03/04/19 mg tablet pain/injury #7 tabs meloxicam 15 mg tablet 15 mg PO DAILY shoulder/arm pain 03/04/19 #14 tabs diazepam 5 mg tablet (Valium) 5 mg PO TID PRN muscle spasm #6 08/15/20 tabs Allergies Allergy/AdvReac Type Severity Reaction Status Date / Time No Known Drug Allergies Allergy Verified 06/04/24 15:18 Review of Systems Hematologic/Lymphatic On Anticoagulants: No Patient History Medical History (Updated 06/04/24 @ 17:18 by Rhea Gonzales DO) Carpal tunnel syndrome on both sides History of sciatica History of asthma Surgical History No history of previous surgery Social History Smoking Status: Former smoker Smoking Status: Former smoker alcohol intake frequency: holidays/special occasions only Substance Use Type: does not use Exam Initial Vital Signs Initial Vital Signs: Vital Signs Temperature 98.4 F 06/04/24 15:14 Pulse Rate 74 06/04/24 15:14 Respiratory Rate 18 06/04/24 15:14 Blood Pressure 140/72 06/04/24 15:14 Pulse Oximetry 97 06/04/24 15:14 Oxygen Delivery Method Room Air 06/04/24 15:14 GENERAL: Alert well-appearing 38-year-old male and in no acute distress. HEENT: Head atraumatic,EOMI, pupils reactive, face symmetric, moist mucous membranes CARDIOVASCULAR: Regular rate and rhythm without murmurs, rubs or gallops. RESPIRATORY: Breath sounds equal bilaterally, no wheezes rales or rhonchi. ABDOMEN: Soft, nontender. Normoactive bowel sounds all 4 quadrants. No guarding or rebound. EXTREMITIES: Normal range of motion, no clubbing or edema. Neurovascularly intact NEUROLOGICAL: Alert and oriented x4.Normal gait and speech. Cranial nerves II through XII grossly intact. Good [id number], good [id number], strength equal bilaterally, no dysarthria or aphasia, sensation in tact to soft touch bilaterally, no visual changes, no facial droop SKIN: Warm, dry, no laceration, no petechiae, no rashes or lesions. Scores ABCD2 Age >= 60 years: no Initial BP. Either SBP >= 140 or DBP >= 90.: yes Clinical features of the TIA: other symptoms Duration of symptoms: 10-59 minutes History of diabetes: no ABCD2 Score: 2 NIH Stroke Scale Level of Conciousness: Alert, keenly responsive Ask month/age: Answers both questions correctly. Open/close eyes, close hand: Performs both tasks correctly Best gaze horizontal: Normal Visual sanchez: No visual loss Facial palsy: Normal symetrical movement Left arm drift: No drift for full 10 sec Right arm drift: No drift for full 10 sec Left leg drift: No drift for full 5 sec Right leg drift: No drift for full 5 sec Limb ataxia: Absent Sensory on face/arms/legs: Normal, no sensory loss Best language: No aphasia, normal Dysarthria: Normal Extinction or inattention: No abnormality Total NIH Stroke scale score: 0 Course Orders Ordered: ED Orders 06/04/24 15:19 EKG-12 Lead Stat 06/04/24 15:24 Complete Blood Count AUTO DIFF Stat Comprehensive Metabolic Panel Stat Troponin I Stat 06/04/24 16:45 CT head/brain wo con Stat Discontinued Medications Ondansetron HCl (Ondansetron 4 Mg/2 Ml Inj) 4 mg IV NOW ONE Stop: 06/04/24 15:20 Last Admin: 06/04/24 15:27 Dose: 4 mg Documented By: Vital Signs Vital signs: Vital Signs - 8 hr 06/04/24 15:14 06/04/24 15:30 06/04/24 15:36 Temperature 98.4 F Pulse Rate 74 75 69 Respiratory Rate 18 Blood Pressure 140/72 Pulse Oximetry 97 97 96 Oxygen Delivery Method Room Air 06/04/24 15:36 06/04/24 16:00 06/04/24 16:00 Temperature Pulse Rate 78 Respiratory Rate Blood Pressure 143/77 H 127/65 Pulse Oximetry 96 Oxygen Delivery Method 06/04/24 17:23 06/04/24 17:23 06/04/24 17:26 Temperature Pulse Rate 64 69 Respiratory Rate 16 Blood Pressure 137/86 137/86 Pulse Oximetry 98 97 Oxygen Delivery Method Room Air MDM - Neuro Symptoms/Deficit Lab Data 06/04/24 15:24 06/04/24 15:24 Labs: Lab Results 06/04/24 Range/Units 15:24 WBC 7.8 (4.5-11.0) X10^3/uL RBC 5.02 (4.5-5.9) X10^6/uL Hgb 14.3 (13.5-17.5) g/dL Hct 42.4 (41-53) % MCV 84.5 (80-100) fL MCH 28.4 (26-34) PG MCHC 33.6 (30-36) % RDW 13.7 (11.6-14.8) % Plt Count 275 (150-400) X10^3/uL Neut % (Auto) 76.8 H (50-75) % Lymph % (Auto) 16.0 L (25-40) % [place] % (Auto) 5.4 (3-14) % Eos % (Auto) 1.1 L (2-4) % Baso % (Auto) 0.7 (0-2) % Neut # (Auto) 5900 (8712-5218) /uL Lymph # (Auto) 1200 (5306-1619) /uL [place] # (Auto) 400 (0-900) /uL Eos # (Auto) 100 (0-450) /uL Baso # (Auto) 100 (0-100) /uL Sodium 138 (137-145) mmol/L Potassium 4.0 (3.4-5.1) mmol/L Chloride 104 (98-107) mmol/L Carbon Dioxide 26 (22-32) mmol/L BUN 12 (9-20) mg/dL Creatinine 1.35 H (0.66-1.25) mg/dL Estimated GFR > 60 (>60) mL/min BUN/Creatinine Ratio 8.9 (6-22) Glucose 111 H (70-100) mg/dL Calcium 9.2 (8.4-10.2) mg/dL Total Bilirubin 0.5 (0.2-1.3) mg/dL AST 32 (17-59) IU/L ALT 46 (<50) IU/L Alkaline Phosphatase 85 (38-126) U/L Troponin I < 0.012 (0.01-0.034) ng/mL Total Protein 7.8 (6.3-8.2) g/dL Albumin 4.7 (3.5-5.0) g/dL Globulin 3.1 (1.7-4.1) g/dL Albumin/Globulin Ratio 1.5 (1.0-2.8) Imaging Data CT scan - head: Radiologist's Impression: PROCEDURE: CT HEAD/BRAIN WO CON INDICATIONS: right side face numbness now resolved TECHNIQUE: Noncontrast 4.5 mm thick angled axial sections acquired from the foramen magnum to the vertex, with coronal and sagittal reformats. For radiation dose reduction, the following was used: automated exposure control, adjustment of mA and/or kV according to patient size. COMPARISON: None. FINDINGS: Image quality: Diagnostic. CSF spaces: Basal cisterns are patent. No extra-axial fluid collections. Ventricles are normal in size and shape. Brain: No midline shift. No intracranial masses or hemorrhage. [place]-white matter interface is normal. Skull and face: Calvarium and visualized facial bones are intact, without suspicious lesions. Sinuses: Visualized sinuses and mastoids are clear. IMPRESSION: No acute intracranial pathology. Dictated by: Tali Field M.D. on 06/04/2024 at 17:02 Approved by: Tali Field M.D. on 06/04/2024 at 17:02 ECG Data Attestation: I personally reviewed and interpreted this ECG as follows: Prior ECG tracings: not available for review Interpretation: Normal sinus rhythm rate 66 W[place] interval 140 QRS 80 QTC 421 T-wave inversion noted in lead 3 only, does not appear to be present on prior EKG in 2020 but no other significant changes MDM Narrative Medical decision making narrative: Patient 38-year-old male presenting today with numbness right side of his face that started suddenly. He had no facial droop difficulty speaking or weakness. It lasted for 30 minutes and self-resolved. He is NIH stroke scale currently of 0. Blood work has been reviewed WBC 7.8 hemoglobin 14.3 hematocrit 42.4 platelets 275, sodium is 138 potassium 4.0 chloride 104 carbon dioxide 26 BUN 12 creatinine 1.35 previously 1.31 glucose 111 troponin negative, bilirubin 0.5 AST [address] no acute intracranial process EKG reviewed no ischemia Patient 38-year-old male has some numbness in his right face. No evidence of facial droop or Ng's palsy. His NIH stroke scale is 0. Noncontrast head CT is negative. He has a low ABCD2 score. At this time I think probably a neuropathy rather than a TIA. He has no evidence of a dental infection. Blood work is overall reassuring Discharge Plan Departure Patient Disposition: Home Clinical Impression: Neuropathy, EV (acute kidney injury) Instructions: DI for Peripheral Neuropathy Activity Restrictions/Additional Instructions: *You have been diagnosed with nerve pain *What to do: At this time unclear what exactly caused your nerve pain. Blood work and head CT are overall reassuring. Your creatinine is elevated at 1.3. You do need to make sure that this is followed so that it is not worsening. *Continue to take medications as directed *Follow up with your primary care provider in 2-3 days or call [phone] *Return to ER if you should have increasing numbness weakness difficulty speaking facial droop or any new, worsening or concerning symptoms Prescriptions: No Action bupropion HCl 150 mg tablet sustained-release 12 hr 150 mg PO Q12H cyclobenzaprine 10 mg tablet 20 mg PO Q8H PRN (Reason: muscle spasm) Qty: 14 0RF Rx Instructions: do not drive hydrocodone-acetaminophen 5-325 mg tablet 1 tab PO Q6H PRN (Reason: acute shoulder pain/injury) Qty: 7 0RF Rx Instructions: do not drive meloxicam 15 mg tablet 15 mg PO DAILY Qty: 14 0RF Rx Instructions: not with other NSAIDs diazepam [Valium] 5 mg tablet 5 mg PO TID PRN (Reason: muscle spasm) Qty: 6 0RF Referrals: Miscellaneous,Doctor, MD [Primary Care Provider] - Stand Alone Forms: Patient Portal/API
--- NOTE | 2024-06-04 16:45 | DI.CT.S_ITS ---
PROCEDURE: CT HEAD/BRAIN WO CON INDICATIONS: right side face numbness now resolved TECHNIQUE: Noncontrast 4.5 mm thick angled axial sections acquired from the foramen magnum to the vertex, with coronal and sagittal reformats. For radiation dose reduction, the following was used: automated exposure control, adjustment of mA and/or kV according to patient size. COMPARISON: None. FINDINGS: Image quality: Diagnostic. CSF spaces: Basal cisterns are patent. No extra-axial fluid collections. Ventricles are normal in size and shape. Brain: No midline shift. No intracranial masses or hemorrhage. [place]-white matter interface is normal. Skull and face: Calvarium and visualized facial bones are intact, without suspicious lesions. Sinuses: Visualized sinuses and mastoids are clear. IMPRESSION: No acute intracranial pathology. Dictated by: Tali Field M.D. on 06/04/2024 at 17:02 Approved by: Tali Field M.D. on 06/04/2024 at 17:02
[2024-06-04 17:23] VITALS: BP 137/86; PULSE 64; O2SAT 98
[2024-06-04 17:26] VITALS: BP 137/86; PULSE 69; RESP 16; O2SAT 97
== END 2024-06-04 17:28 | disposition home or self-care (01) ==
PROVIDERS: Emergency Provider Emergency Medicine; Family Provider Family Medicine
DX: G62.9 Polyneuropathy, unspecified (principal); N17.9 Acute kidney failure, unspecified; R42 Dizziness and giddiness
CPT/HCPCS: 36415; 70450; 80053; 84484; 85025; 93005; 96374; 99284; J2405

== ENCOUNTER → 2024-07-22 12:26 | Outpatient (CLI) | payer OTHER, SELFPAY ==
[2024-07-22 13:44] LABS: Influenza A - CEPHEID Flu A NEGATIVE (NEGATIVE); Influenza B - CEPHEID Flu B NEGATIVE (NEGATIVE); Respiratory Syncytial Virus Negative (Negative)
[2024-07-22 13:47] LABS: COVID-19 CEPHEID 4-PLEX PCR Negative (Negative)
== END ==
PROVIDERS: Family Provider Family Medicine; Visit Provider Physician Assistant Medical
DX: R05.1 Acute cough (principal)
CPT/HCPCS: 0241U; 87070

== ENCOUNTER → 2024-07-22 13:00 | Outpatient (CLI) | payer OTHER, SELFPAY ==
--- NOTE | 2024-07-22 13:01 | DI.RAD.S_ITS ---
PROCEDURE: XR CHEST 2V INDICATIONS: SOB TECHNIQUE: 2 views of the chest were acquired. COMPARISON: None. FINDINGS: Surgical changes and devices: None. Lungs and pleura: Minimal streaky opacities are present in the left lung. Mediastinum: Mediastinal contours are normal. Heart size is normal. Bones and chest wall: No suspicious bony abnormalities. Soft tissues appear unremarkable. IMPRESSION: Minimal left lobe streaky opacities suggestive of atelectasis versus developing pneumonia. Dictated by: Tali Field M.D. on 07/22/2024 at 13:47 Approved by: Tali Field M.D. on 07/22/2024 at 13:47
== END ==
LOC: RAD 13:01
PROVIDERS: Family Provider Family Medicine; PCP Physician Assistant; Referring Provider Physician Assistant Medical; Visit Provider Physician Assistant Medical
DX: R05.1 Acute cough (principal)
CPT/HCPCS: 0241U; 71046; 87070

== ENCOUNTER → 2024-08-04 14:38 | Outpatient (CLI) | payer OTHER, SELFPAY ==
--- NOTE | 2024-08-04 14:39 | DI.RAD.S_ITS ---
PROCEDURE: XR CHEST 2V INDICATIONS: persistent spasmodic cough, recent PNA TECHNIQUE: 2 views of the chest were acquired. COMPARISON: [facility], CR, XR CHEST 2V, 07/22/2024, 13:08. FINDINGS: Surgical changes and devices: None. Lungs and pleura: Lungs are clear. No pleural effusions or pneumothorax. Mediastinum: Mediastinal contours are normal. Heart size is normal. Bones and chest wall: No suspicious bony abnormalities. Soft tissues appear unremarkable. IMPRESSION: No acute cardiopulmonary abnormality is seen. Dictated by: Jerod Riojas M.D. on 08/04/2024 at 15:15 Approved by: Jerod Riojas M.D. on 08/04/2024 at 15:15
== END ==
PROVIDERS: Family Provider Family Medicine; PCP Physician Assistant; Referring Provider Student in an Organized Health Care Education/Training Program; Visit Provider Student in an Organized Health Care Education/Training Program
DX: J18.9 Pneumonia, unspecified organism (principal); R05.3 Chronic cough
CPT/HCPCS: 71046

== ENCOUNTER 2025-05-14 01:20 | Emergency (ER) | payer OTHER, SELFPAY ==
[2025-05-14 01:37] VITALS: BP 158/87; PULSE 79; O2SAT 95
[2025-05-14 01:38] VITALS: BP 158/87; PULSE 76; RESP 22; TEMP 36.7; O2SAT 95; BMI 44.7
--- NOTE | 2025-05-14 01:42 | DI.CT.S_ITS ---
PROCEDURE: CT ABDOMEN PELVIS W CON INDICATIONS: LLQ pain n/v TECHNIQUE: After the administration of intravenous contrast, axial sections acquired from the lung bases to the pubic symphysis. Coronal and sagittal reformats were performed. For radiation dose reduction, the following was used: automated exposure control, adjustment of mA and/or kV according to patient size. COMPARISON: [facility], CT, CT ABDOMEN PELVIS W CON, 09/06/2023, 15:35. [facility], CT, CT ABDOMEN PELVIS W CON, 04/07/2024, 11:36. FINDINGS: Image quality: Diagnostic. Lower Chest: No significant findings. ABDOMEN: Liver: No solid mass. Diffuse fatty liver infiltration is noted. Gallbladder: No radiopaque gallstones or wall thickening. Biliary ducts: No biliary dilation. Pancreas: No ductal dilation. Spleen: Size is within normal limits. Adrenal Glands: No adrenal nodules. Kidneys and Ureters: No hydronephrosis. No solid mass. No complex renal cystic lesion which requires follow up. Stomach and Bowel: In this patient with this given history, scrutiny is given to the sigmoid colon. There is mild diverticulosis seen, without findings of active diverticulitis. No left lower quadrant inflammatory change can be seen. The more proximal colon is within normal limits. A normal appendix is noted. No dilated loops of small bowel are seen. Peritoneum: Minimal fatty stranding can be seen of the root of the mesentery. No abnormal intraperitoneal fluid. No free air. Ventral Wall: No significant ventral hernia. Abdominal Nodes: No retroperitoneal or mesenteric adenopathy by size criteria. A few small lymph nodes can be seen along the leaves of the mesentery. Vessels: Aorta and inferior vena cava are normal in size. PELVIS: Pelvic Organs: Unremarkable. Bladder: No bladder wall thickening, accounting for underdistention. Pelvic Nodes: No enlarged lymph nodes. Miscellaneous: Mild bilateral fat containing inguinal hernias can be seen. The right inguinal hernia appears improved compared to the prior. Bones: No aggressive osseous abnormality. IMPRESSION: Mild sigmoid diverticulosis, without findings of active diverticulitis. Mild fatty stranding seen along the root of the mesentery, with small lymph nodes seen. The appearance is similar to the prior examination and can be seen in patients with chronic inflammation. Additional findings: Fatty liver infiltration. Normal appendix Mild bilateral fat containing Mild bilateral fat containing inguinal hernias Note: No significant discrepancy from the preliminary report. Dictated by: Dru Olguin M.D. on 05/14/2025 at 8:10 Approved by: Dru Olguin M.D. on 05/14/2025 at 8:14
--- NOTE | 2025-05-14 01:43 | ED.ABDPAIN ---
HPI - Abdominal Pain General Chief Complaint: Abdominal Pain Stated Complaint: abd pain, nausea Time Seen by Provider: 05/14/25 01:23 Source: patient Mode of arrival: Ambulatory History of Present Illness HPI narrative: 39-year-old gentleman history of inguinal hernia repair, diverticulitis, presents with 3 days of left-sided abdominal pain associated with nausea but no vomiting, diarrhea, constipation, back pain, hematuria, chest pain, shortness breath, cough. He did take some Tylenol without significant relief of his symptoms. He states it feels like this could be his diverticulitis but worse pain. Other than what is stated 14 point review of system is negative Related Data Home Medications ?Medication ?Instructions ?Recorded ?Confirmed bupropion HCl 150 mg 24 hr tablet, 150 mg PO DAILY 08/04/24 08/04/24 extended release valacyclovir 500 mg tablet 500 mg PO BID 08/04/24 08/04/24 Previous Rx's ?Medication ?Instructions ?Recorded benzonatate 150 mg capsule 150 mg PO TID PRN cough 10 days 08/04/24 #30 caps hydrocodone 5 mg-acetaminophen 325 1 tab PO Q4-6H PRN pain #20 tabs 05/14/25 mg tablet Allergies Allergy/AdvReac Type Severity Reaction Status Date / Time alcohol Allergy Unknown Verified 05/14/25 01:39 Review of Systems Review of Systems ROS Unobtainable: All systems reviewed & are unremarkable except as noted in HPI and below Patient History Medical History (Updated 05/14/25 @ 02:48 by Carlos Gambino DO) Carpal tunnel syndrome on both sides History of sciatica History of asthma Surgical History No history of previous surgery Social History Smoking Status: Never smoker Smoking Status: Never smoker alcohol intake frequency: holidays/special occasions only Exam Narrative Exam Narrative: GENERAL: [39] year old patient appears stated age. Well-developed patient, in mild distress. HEAD: Atraumatic. Normocephalic. EYES: Pupils equal round and reactive. Extraocular motions intact. No scleral icterus. No injection or drainage. ENT: Nose without bleeding, purulent drainage. Throat without erythema, tonsillar hypertrophy or exudate. Airway patent. NECK: Trachea midline. Non tender CARDIOVASCULAR: Regular rate and rhythm without murmurs, gallops, or rubs. RESPIRATORY: Clear to auscultation. Breath sounds equal bilaterally. No wheezes, rales, or rhonchi. GASTROINTESTINAL: Abdomen soft, LLQ TTP no rebound rigidity guarding, nondistended. EXTREMITIES: No edema or joint tenderness. BACK: Nontender without deformity or crepitance. No flank tenderness. NEURO: AOx3. SKIN: No rash or erythema of visible areas Initial Vital Signs Initial Vital Signs: Vital Signs Temperature 98.0 F 05/14/25 01:38 Pulse Rate 76 05/14/25 01:38 Respiratory Rate 22 05/14/25 01:38 Blood Pressure 158/87 H 05/14/25 01:38 Pulse Oximetry 95 05/14/25 01:38 Oxygen Delivery Method Room Air 05/14/25 01:38 Course Orders Ordered: ED Orders 05/14/25 01:42 CT abdomen pelvis w con Stat Complete Blood Count AUTO DIFF Stat Comprehensive Metabolic Panel Stat Lipase Stat Vital Signs Vital signs: Vital Signs - 8 hr 05/14/25 01:38 Temperature 98.0 F Pulse Rate 76 Respiratory Rate 22 Blood Pressure 158/87 H Pulse Oximetry 95 Oxygen Delivery Method Room Air MDM - Abdominal Pain Imaging Data CT scan - abdomen/pelvis: Radiologist's Impression: Ill-defined stranding noted at the root of mesentery with associated prominent yet subcentimeter mesenteric lymph node. This is a nonspecific finding but can be seen in the setting of mesenteric panniculitis. No evidence of colitis diverticulitis bowel obstruction obstructive uropathy or acute appendicitis. MDM Narrative Medical decision making narrative: All lab work, vital signs, nurse triage note, medication list, previous ER visits, and all imaging studies reviewed. Patient given given Toradol and Zofran here. Differential diagnosis diverticulitis pancreatitis appendicitis constipation kidney stone. DC home to keep hydrated clear liquid diet advance as tolerated and to follow up PCP next week for follow up. Discharge Plan Departure Patient Disposition: Home Clinical Impression: Mesenteric panniculitis Instructions: DI for Abdominal Pain-Adult Activity Restrictions/Additional Instructions: Return with new or worsening symptoms. Follow up with PCP in 1-2 weeks if no improvement in symptoms. Clear liquid diet advance as tolerated. Take Tylenol and/or ibuprofen for pain control and [place] for breakthrough pain. Prescriptions: New hydrocodone-acetaminophen 5-325 mg tablet 1 tab PO Q4-6H PRN (Reason: pain) Qty: 20 0RF No Action bupropion HCl 150 mg tablet extended release 24 hr 150 mg PO DAILY valacyclovir 500 mg tablet 500 mg PO BID benzonatate 150 mg capsule 150 mg PO TID PRN (Reason: cough) 10 Days Qty: 30 1RF Referrals: Georgiana Valerio PA-C [Primary Care Provider, Medical] Stand Alone Forms: Patient Portal/API
[2025-05-14 01:51] LABS: Add Manual Diff / Slide Review NO; Hematocrit 42.3 % (41-53); Hemoglobin 14.5 g/dL (13.5-17.5); Lymphocytes Absolute Auto 1800 /uL (1100-4500); Mean Corpuscular HGB Conc 34.3 % (30-36); Mean Corpuscular Hemoglobin 28.9 PG (26-34); Mean Corpuscular Volume 84.4 fL (80-100); Platelet Count 277 X10^3/uL (150-400)
[2025-05-14 02:02] LABS: Alanine Aminotransferase 104 IU/L (<50); Albumin 5.0 g/dL (3.5-5.0); Albumin Globulin Ratio 1.7 (1.0-2.8); Alkaline Phosphatase 77 U/L (38-126); Blood Urea Nitrogen 13 mg/dL (9-20); Calcium 9.7 mg/dL (8.4-10.2); Carbon Dioxide 28 mmol/L (22-32); Chloride 103 mmol/L (98-107); Estimated Glomerular Filt Rate > 60 mL/min (>60); Globulin 3.0 g/dL (1.7-4.1); Glucose 107 mg/dL (70-99); HEMOLYSIS < 15 (0-50); Lipase 115 U/L (23-300); Potassium 4.0 mmol/L (3.4-5.1); Sodium 140 mmol/L (137-145); Total Protein 8.0 g/dL (6.3-8.2)
[2025-05-14 02:09] VITALS: PULSE 73; O2SAT 98
[2025-05-14] MEDS: KETOROLAC 30 MG/ML VIAL 15 MG IV (02:15)
[2025-05-14 02:18] VITALS: BP 138/63; PULSE 61; O2SAT 97
[2025-05-14 02:29] LABS: Appearance Urine UA CLEAR; Bilirubin Urine UA NEGATIVE (NEGATIVE); Color Urine UA YELLOW; Glucose Urine UA NEGATIVE (Negative); Ketones Urine UA NEGATIVE (NEGATIVE); Leukocyte Esterase Urine UA NEGATIVE (NEGATIVE); Nitrite Urine UA NEGATIVE (Negative); Occult Blood Urine UA NEGATIVE (Negative); Protein Urine UA NEGATIVE (Negative); Specific Gravity Urine UA 1.025 (1.000-1.035); Urobilinogen Urine UA 0.2 E.U./dL (0.2); pH Urine UA 6.0 (4.5-8.0)
[2025-05-14 02:30] VITALS: BP 128/56; PULSE 62; O2SAT 96
[2025-05-14 02:30] LABS: Culture Indicated Urine Cult Not Indicated
== END 2025-05-14 03:13 | disposition home or self-care (01) ==
PROVIDERS: Emergency Provider Family Medicine; PCP Physician Assistant
DX: K65.4 Sclerosing mesenteritis (principal); R11.0 Nausea
CPT/HCPCS: 36415; 74177; 80053; 81001; 83690; 85025; 96374; 99284; J1885; Q9967